=== PATIENT | female | born 1960 | race Caucasian/White ===

== ENCOUNTER 2019-12-15 10:01 | Outpatient (CLI) | payer MEDICARE, SELFPAY ==
--- NOTE | 2019-12-15 10:15 | CT_ITS ---
WS: [id number] LDCT LUNG CANCER SCREENING TECHNIQUE: Noncontrast CT of the chest with coronal and sagittal reformatted images. CLINICAL INFORMATION: NICOTINE DEPENDENCE,CIGARETTES COMPARISON: None. DLP: 54.58 mGy.cm DIvol: 1.[address] scans at [facility] use at least one of these dose optimization techniques: automat ed exposure control; mA and/or kV adjustment per patient size (includes targeted exams where dose is matched to clinical indication); or iterative reconstruction. FINDINGS: No suspicious pulmonary parenchymal opacities. No mediastinal or hilar lymphadenopathy. Coronary calc ification. Adrenal glands are normal. No axillary lymphadenopathy. Postoperative changes bilateral to oli shoulder arthroplasties. CT/CT lung screening [id number] IMPRESSION: LUNG-RADS: 1-Negative FOLLOW UP: 12 Month: Continue annual screening with LDCT
== END 2019-12-15 10:02 | disposition home or self-care (01) ==
LOC: CT 10:05
PROVIDERS: PCP Family Medicine; Visit Provider Family Medicine
DX: Z12.2 Encounter for screening for malignant neoplasm of respiratory organs (principal); F17.210 Nicotine dependence, cigarettes, uncomplicated
CPT/HCPCS: G0297

== ENCOUNTER 2020-01-31 13:24 | Outpatient (CLI) | payer MEDICARE, SELFPAY ==
--- NOTE | 2020-01-31 13:29 | MM_ITS ---
WS: [id number] SCREENING DIGITAL MAMMOGRAM WITH CAD HISTORY: SCREENING COMPARISON: 11/24/2017 and 11/15/2016 Bilateral CC and MLO views submitted. Computer aided detection analyzed. Breast composition: There are scattered areas of fibroglandular density. No suspicious masses, microc alcifications or architectural distortion. MM/[place] [id number] IMPRESSION: BI-RADS: 1-Negative FOLLOW UP: 1 Year Follow-up
--- NOTE | 2020-01-31 15:09 | XR_ITS ---
WS: [id number] SCREENING DEXA SCAN [employer] CLINICAL INFORMATION: OSTEOPOROSIS COMPARISON: September 20, 2014 FINDINGS: The L1-L4 bone mineral density measures 0.879 g/cm2. This corresponds to a T score score of -2.5 and Z score of -1.1. Left forearm bone mineral density 0.59 g/sq cm with a T score of -3.2 and Z score of -2.2 XR/XR DEXA axial skeleton* [id number] IMPRESSION: Osteoporosis
== END 2020-01-31 13:25 | disposition home or self-care (01) ==
LOC: RADSHAW 13:26
PROVIDERS: PCP Family Medicine; Visit Provider Family Medicine
DX: Z12.31 Encounter for screening mammogram for malignant neoplasm of breast (principal); M81.0 Age-related osteoporosis without current pathological fracture
CPT/HCPCS: 77067; 77080

== ENCOUNTER → 2020-03-13 11:31 | Outpatient (BNVA) | payer MEDICARE, SELFPAY | PROVIDERS: PCP Family Medicine; Visit Provider Internal Medicine | DX: Z20.822 Contact with and (suspected) exposure to COVID-19 (principal); Z01.812 Encounter for preprocedural laboratory examination | CPT/HCPCS: 87635 ==

== ENCOUNTER 2020-03-20 08:00 | Day surgery (SDC) | payer MEDICARE, SELFPAY ==
[2020-03-16 14:16] VITALS: BMI 24.3
--- NOTE | 2020-03-20 08:27 | W.PM.OPSUD ---
Surgery/Procedure H&P Update DATE OF PROCEDURE: March 20, 2020 DATE H&P PERFORMED: 03/09/20 PREOP DIAGNOSIS: dbl PLANNED PROCEDURE: Operation Date: 03/20/20 09:30 Proposed Procedures p EGD [id number] K52.9(Not Applicable) - Mickey Malcolm MD s Colonoscopy(Not Applicable) - Mickey Malcolm MD
--- NOTE | 2020-03-20 08:27 | W.PM.OPSUD ---
Surgery/Procedure H&P Update DATE OF PROCEDURE: March 20, 2020 DATE H&P PERFORMED: 03/09/20 PREOP DIAGNOSIS: dbl PLANNED PROCEDURE: Operation Date: 03/20/20 09:30 Proposed Procedures p EGD [id number] K52.9(Not Applicable) - Mickey Malcolm MD s Colonoscopy(Not Applicable) - Mickey Malcolm MD
[2020-03-20 08:36] VITALS: BP 130/92; PULSE 96; RESP 16; TEMP 36.4; O2SAT 96
[2020-03-20] MEDS: sodium chloride 0.9% 1,000 ML 30 ML IV (09:12)
--- NOTE | 2020-03-20 09:38 | P.ANESASSM_ITS ---
Pre-Anesthetic Assessment Pre-Anesthetic Assessment: Height/Weight: Height 1.6 m Weight 62.142 kg Temp Pulse Resp BP Pulse Ox 97.6 F 96 16 130/92 96 03/20/20 08:36 03/20/20 08:36 03/20/20 08:36 03/20/20 08:36 03/20/20 08:36 Preop Diagnosis: dbl Proposed Procedure: Operation Date: 03/20/20 09:30 Proposed Procedures p EGD [id number] 20271 K52.9(Not Applicable) - Mickey Malcolm MD s Colonoscopy(Not Applicable) - Mickey Malcolm MD Was Beta Tone taken within 24 hours: N/A Last intake: Intake Last Liquid Date 03/19/20 Last Liquid Time 21:00 Last Solid Date 03/18/20 Last Solid Time 21:00 Social: Social History: Tobacco and No alcohol Exam: Pre-Anes Outpt Exam: alert, oriented x 3 and regular rate & rhythm Airway: Submandibular: WNL Cervical ROM: WNL MP: 2 Dentition: Full Pulmonary: Pulmonary: COPD CV/HEM: CV/HEM: HTN GI: GI: GERD Anesthetic Plan: ASA status: 3 Anesthesia: MAC Risk of > 500 ml blood loss (7ml/kg in children): No Meds/Allergies Current Medications: Current Medications Generic Name Dose Route Start Last Admin Trade Name Freq PRN Reason Stop Dose Admin Sodium Chloride 1,000 mls @ 30 ml s/hr 03/20/20 08:30 03/20/20 09:12 Sodium Chloride 0.9% IV 03/21/20 08:29 30 mls/hr .Q24H CITLALI Administration PFSH Anesthesia PFSH: Social History (Updated 03/09/20 @ 11:19 by VINAY Rivers) Smoking and tobacco status: current every day smoker Alcohol intake: current Alcohol intake frequency: 3 or more drinks per day Alcohol type: beer Adopted: Yes Marital status: Number of children: 0 service: No History of recent travel: No Data Anesthesia Cardiac Studies: 2 No Data to Display
[2020-03-20 10:20] VITALS: BP 117/66; PULSE 90; RESP 16; TEMP 36.4; O2SAT 96
[2020-03-20 10:35] VITALS: BP 127/84; PULSE 86; RESP 18; TEMP 36.4; O2SAT 97
--- NOTE | 2020-03-20 11:36 | ANE.PACU2 ---
Inpatient post-anesthesia follow up: Airway intact: Yes Vital signs: Temperature 97.6 F Pulse Rate 86 Respiratory Rate 18 Blood Pressure 127/84 Pulse Oximetry 97 Oxygen Delivery Me thod Room Air Oxygen Flow Rate 3 Fraction of Inspir ed Oxygen Hydration adequate: Yes Nausea and vomiting: No Pain level: 1 Mental status: Baseline
[2020-03-21 08:04] LABS: H. Pylori / CLO Test Negative
== END 2020-03-20 11:29 | disposition home or self-care (01) ==
PROVIDERS: PCP Family Medicine; Visit Provider Internal Medicine
PROC: 0DJ08ZZ Inspection of Upper Intestinal Tract, Via Natural or Artificial Opening Endoscopic (ICD-10-PCS; CPT 43235; principal; 2020-03-20 09:30)
PROC: 0DJD8ZZ Inspection of Lower Intestinal Tract, Via Natural or Artificial Opening Endoscopic (ICD-10-PCS; CPT 45378; 2020-03-20 09:30)
DX: K52.9 Noninfective gastroenteritis and colitis, unspecified (principal); F17.210 Nicotine dependence, cigarettes, uncomplicated; K29.71 Gastritis, unspecified, with bleeding; K57.30 Diverticulosis of large intestine without perforation or abscess without bleeding; D12.3 Benign neoplasm of transverse colon; J44.9 Chronic obstructive pulmonary disease, unspecified; I10 Essential (primary) hypertension; K21.9 Gastro-esophageal reflux disease without esophagitis
CPT/HCPCS: 12345; 43239; 45385; 82274; 83630; 87077; 87493; 87506; 88305; J2354; J2704; J7030

== ENCOUNTER → 2020-08-04 10:33 | Outpatient (BNVA) | payer MEDICARE, SELFPAY | PROVIDERS: PCP Family Medicine; Visit Provider Family Medicine | DX: M62.830 Muscle spasm of back (principal); M94.0 Chondrocostal junction syndrome [Tietze]; M54.9 Dorsalgia, unspecified; Z79.899 Other long term (current) drug therapy | CPT/HCPCS: 81000 ==

== ENCOUNTER → 2020-11-06 10:57 | Outpatient (BNVA) | payer MEDICARE, SELFPAY | PROVIDERS: PCP Family Medicine; Visit Provider Nurse Practitioner Family | DX: M25.551 Pain in right hip (principal); Z96.641 Presence of right artificial hip joint | CPT/HCPCS: 73502 ==

== ENCOUNTER 2020-12-11 06:56 | Outpatient (CLI) | payer MEDICARE, SELFPAY ==
--- NOTE | 2020-12-11 07:10 | MR_ITS ---
WS: [id number] MRI/MRCP OF THE ABDOMEN WITHOUT GADOLINIUM ENHANCEMENT TECHNIQUE: Thin and thick slab MRCP, Axial T2, Coronal MRCP, Axial Dual Echo, and Axial 2-D Fiesta imaging was obtained. Coronal 2-D Fiesta imaging. CLINICAL INFORMATION: Post prandial abdominal pain in the absence of a GB COMPARISON: Ultrasound 4 26,011 FINDINGS: A few incidental hepatic cysts the largest measuring 10 mm. Cholecystectomy. No intrahepatic biliary ductal dilatation. Mild diffuse fatty infiltration liver. Pa ncreas is normal in appearance. Normal pancreatic duct. Normal pancreatic head. Common bile duct balbina ures 7.3 mm at pancreatic head within normal limits postcholecystectomy. Adrenal glands are normal. T iny bilateral renal cysts. No hydronephrosis in either kidney. Normal caliber abdominal aorta. Normal spleen. Impression: 1. Prior cholecystectomy. 2. No intrahepatic biliary ductal dilatation. Mild prominence of the common bile duct within normal limits postcholecystectomy. No evidence of choledocholithiasis. 3. Normal pancreas. Normal pancreatic duct. 4. Incidental hepatic cysts. 5. Mild diffuse fatty infiltration liver. 6. No other significant findings.
== END 2020-12-11 06:57 | disposition home or self-care (01) ==
LOC: RADSHAW 06:58
PROVIDERS: PCP Family Medicine; Visit Provider Internal Medicine
DX: R10.9 Unspecified abdominal pain (principal); K76.0 Fatty (change of) liver, not elsewhere classified; K76.89 Other specified diseases of liver; Z90.49 Acquired absence of other specified parts of digestive tract
CPT/HCPCS: 74181

== ENCOUNTER 2021-02-12 09:31 | Emergency (ER) | payer MEDICARE, SELFPAY ==
[2021-02-12 10:06] VITALS: BP 147/81; PULSE 95; RESP 16; TEMP 37.1; O2SAT 98; BMI 25.4
--- NOTE | 2021-02-12 11:32 | W.ED.GENADLT ---
HPI - General Adult General: Chief complaint: Abdominal Pain Stated complaint: LOWER ABD PAIN Time Seen by Provider: 02/12/21 10:14 History of Present Illness: HPI narrative: Patient is a 60-year-old female with a history of prior hysterectomy, cystectomy presenting to the emergency room with complaints of lower abdominal pain since . Patient describes the pain is intermittent colicky pain in the lower abdomen. Patient reports pain is not worse with p.o. intake is not exacerbated by any activity. Patient denies any new vaginal discharge, new urinary symptoms, history of kidney stones, vomiting fever or chills. Patient has no melena or hematochezia. Denies any prior history of hernia. Onset: 5 days ago Duration:5 days Location:home Severity:moderate Review of Systems Narrative: Constitutional: No fever, no chills. HEENT: No vision changes CV: No chest pain, no palpitations PULM: no cough, no dyspnea. GI: +lower abdominal pain, no N/V/D. : No dysuria MSKEL: No muscle pain SKIN: No new rashes, no lesions. NEURO: No headache, no focal weakness. HEME: No visible bruises PSYCH: Normal mood PFSH ED PFSH: Medical History COPD (chronic obstructive pulmonary disease) Diabetes FH: bilateral hip replacements Onychomycosis Osteoporosis Spinal stenosis Surgical History H/O abdominal hysterectomy History of cholecystectomy History of left knee replacement History of replacement of both shoulder joints Social History Smoking and tobacco status: former smoker Alcohol intake: current Alcohol intake frequency: 3 or more drinks per day Alcohol type: beer Adopted: Yes Marital status: Number of children: 0 service: No History of recent travel: No Female Reproductive History: Spontaneous abortions: No Physical Exam Narrative: EXAM NARRATIVE: Head: Atraumatic Eyes: PERRL, conjunctiva without injection ENT: Mucous membrane moist NECK: Supple, ROM intact LUNGS: LCTAB, no crackles/rhonchi CV: RRR ABDOMEN: Soft, +mild focal TTP in the left and right lower quadarnats. NO guarding rebound, guarding, rigidity. No CVA tenderness to percussion. Neg Ya/Neg McBurney's point tenderness, no suprabupic tenderness to palpation. EXTREMITY: Normal ROM SKIN: No rash or erythema NEURO: Awake and alert, no focal motor deficits PSYCH: Normal mood and affect Course Vital Signs: Vital signs: Vital Signs Temperature 99.4 F 02/12/21 12:25 Pulse Rate 82 02/12/21 13:52 Respiratory Rate 18 02/12/21 13:52 Blood Pressure 159/88 02/12/21 13:52 Pulse Oximetry 92 02/12/21 13:52 MDM - General Adult MDM Narrative: Medical decision making narrative: 60-year-old female with history of prior cholecystectomy, hysterectomy presenting to the emergency room with complaints of lower abdominal pain x4 days. However, patient has mild tenderness to palpation lower abdomen. No guarding or rebound tenderness. Hemodynamically stable, in no acute distress. CT scan showed possible early diverticulitis versus diverticulosis. Finally, I discussed this with patient and instructed patient follow with primary care provider next 2 days to be reassessed for abd pain. In addition, have given patient prescription for antibiotics should she have fever, worsening pain, nausea/vomiting, or any new concerning complaints. No suspicion for other acute intra-abdominal pathology including SBO, biliary pathology, appendicitis, or other emergent condition requiring surgery. Rx tylenol PRN abd pain, maalox/pepcid PRN dyspepsia, and zofran PRN nausea/vomiting, augmentin BID x 10 days for diverticulitis just in case Disposition: Discharge. Patient counseled regarding diagnostic impression, treatment plan. Patient given ED strict return precautions to return for continuation, worsening, or development of new symptoms. Instructed to f/u w/ PCP regarding symptoms today. Patient verbalized understanding. Lab Data: Labs: Lab Results 02/12/21 02/12/21 02/12/21 12:01 12:01 12:05 WBC 7.3 10^3/uL 10^3/ uL (4.0-10.0) RBC 4.57 10^6/uL 10^6 /uL (4.1-5.3) Hgb 14.9 g/dL g/dL (11.5-15.3) Hct 44.9 % % (37.0-47.0) MCV 98.2 fl fl (81-99) MCH 32.6 pg pg (28.0-34.0) MCHC 33.2 g/dL g/dL (30.0-36.0) RDW 12.3 % % (12.1-15.1) Plt Count 253 10^3/cmm 10^3 /cmm (130-400) MPV 10.9 fL H fL (7.4-10.4) Neut % (Auto) 64.1 % % Lymph % (Auto) 26.6 % % [place] % (Auto) 7.9 % % Eos % (Auto) 0.7 % % Baso % (Auto) 0.4 % % Neut # (Auto) 4.66 10^3/uL 10^3 /uL (1.8-7.7) Lymph # (Auto) 1.9 10^3/uL 10^3/ uL (0.8-4.8) [place] # (Auto) 0.6 10^3/uL 10^3/ uL (0.2-0.9) Eos # (Auto) 0.1 10^3/uL 10^3/ uL (0.0-0.8) Baso # (Auto) 0.0 10^3/uL 10^3/ uL (0.0-0.1) Nucleated RBC % (a uto) 0 % % Nucleated RBCs # 0.0 /100WBC /100W BC Sodium 137 mmol/L mmol/L (136-145) Potassium 3.8 mmol/L mmol/L (3.5-5.1) Chloride 96 mmol/L L mmol/ L (98-107) Carbon Dioxide 27 mmol/L mmol/L (22-29) Anion Gap 17.8 (5-19) BUN 11 mg/dL mg/dL (8-23) Creatinine 0.6 mg/dL mg/dL (0.5-0.9) GFR Calculation 101.3 mL/min mL/m in (90-130) Glucose 116 mg/dL H mg/dL (65-115) Calculated Osmolal ity 284 mOsm/kg L mOs m/kg (285-295) Calcium 9.4 mg/dL mg/dL (8.5-10.5) Total Bilirubin 0.3 mg/dL mg/dL (0.15-1.2) AST 18 U/L U/L (0-32) ALT 23 U/L U/L (0-33) Alkaline Phosphata se 94 IU/L IU/L (35-105) Total Protein 8.0 g/dL g/dL (6.6-8.7) Albumin 4.6 g/dL g/dL (3.5-5.2) Globulin 3.4 g/dL g/dL (1.3-4.6) Lipase 28 U/L U/L (13-60) Urine Color Straw (Yellow) Urine Appearance Clear (CLEAR) Urine pH 7 (5-7) Ur Specific Gravit y 1.005 (1.005-1.030) Urine Protein Neg (Negative) Urine Glucose (UA) Norm (Normal) Urine Ketones Negative (Negative) Urine Blood Neg (Negative) Urine Nitrate Negative (Negative) Urine Bilirubin Neg (Negative) Urine Urobilinogen Norm mg/dL mg/dL (Negative) Ur Leukocyte Zara ase Negative (Negative) Imaging Data^: Other Imaging: Radiologist's impression: [address] [id number] Scan ReportSigned Patient: Juan Fair #: [id number]: [id number]#:[id number]/Sex: 60 / FADM Date: 02/12/21Loc: ERRoom/Bed:Attending Dr: Ordering Provider/Ordering MD: Akash Whyte MD Date of Service: 02/12/21 Procedure(s): CT abdomen pelvis w con* [id number] Accession Number(s): [id number] Report Number: [id number] WS: [id number] CT ABDOMEN AND PELVIS WITH CONTRAST HISTORY: Lower abdominal pain for 4 days. Diarrhea. TECHNIQUE: Imaging performed of the abdomen and pelvis with IV contrast. Single phase imaging of the abdomen. Coronal and sagittal reformats are submitted. [facility] use at least one of these dose optimization techniques: automated exposure control; mA and/or kV adjustment per patient size (includes targeted exams where dose is matched to clinical indication); or iterative reconstruction. IV CONTRAST: Omnipaque 300; 95 mL IV. Oral contrast: No DLP: 1069.24 mGy.cm COMPARISON: 07/16/2006 Lower thorax: Lung bases are hyperinflated. Normal size heart. No effusion. No hiatal hernia. Liver/biliary system: Liver is top normal size. Cysts within the lateral segment LEFT lobe of the liver was present in 2007. Lobulated low-attenuation nodule in the RIGHT lobe of the liver is unchanged. No solid mass or abnormal enhancement. Normal portal vein. Gallbladder: Status post cholecystectomy. Pancreas: Normal size pancreas and pancreatic duct. No adjacent inflammation. Spleen: Normal size spleen. No mass or infarct. Adrenal glands: Normal. Right kidney: Normal size kidney. 5 mm hypodensity inferior pole. No obstruction. Left kidney: Normal. Aorta: Mild atherosclerosis with no aneurysm. Lymphadenopathy: None. Free fluid: None. GI tract: Prior appendectomy. No GI tract obstruction. There is mild diffuse thickening of the stomach mucosa which could be due to underdistention. No adjacent inflammation. No GI tract obstruction. There are numerous diverticula throughout the sigmoid colon with mild narrowing of the lumen. No definite areas of acute diverticulitis. There is some very mild adjacent stranding and thickening which could be early changes of developing diverticulitis. Abdominal wall: Unremarkable abdominal wall. No hernia. Pelvis: Urinary bladder and soft tissues of the pelvis are being significantly obscured by artifact from bilateral hip prostheses. Bones: Degenerative disc disease is moderate at L5-S1. Bilateral hip prostheses. CT/CT abdomen pelvis w con* [id number] IMPRESSION: 1. Moderate diverticulosis within the sigmoid colon. There is mild wall thickening and narrowing of the lumen but no definite evidence for acute diverticulitis at this time. Consider early changes of diverticulitis. Radiographically cannot confirm acute inflammation. 2. No free air or free fluid. 3. Prior appendectomy and cholecystectomy and hysterectomy. 4. Hepatic cysts. Dictated By:Giselle Stewart DOSigned By:Giselle Stewart DOSigned Date/Time:02/12/21 1432DD/ 1419 Discharge Plan Discharge Patient Disposition: Home Clinical Impression: Abdominal pain, Diverticulosis Condition: Stable Prescriptions: New Zofran 4 mg tablet 4 mg PO TID PRN (Reason: nausea and vomiting) 4 Days Qty: 12 RF: 0 acetaminophen 500 mg tablet 500 mg PO Q6H PRN (Reason: pain) 5 Days Qty: 20 RF: 0 Maalox Advanced 1,000-60 mg tablet,chewable 1 tab PO TID PRN (Reason: abdominal pain) 7 Days Qty: 21 RF: 0 Augmentin 875-125 mg tablet 1 tab PO Q12H 10 Days Qty: 20 RF: 0 No Action cyclobenzaprine 5 mg tablet 10 mg PO TID MDD 6 tabs PRN (Reason: muscle spasm) Qty: 30 RF: 1 Creon 24,000-76,000 -120,000 unit capsule,delayed release(DR/EC) 1 cap PO TID Qty: 90 RF: 3 valsartan-hydrochlorothiazide 160-12.5 mg tablet 1 tab PO DAILY RF: 0 budesonide-formoterol [Symbicort] 160-4.5 mcg/actuation HFA aerosol inhaler 2 puff inhalation BID RF: 0 albuterol sulfate 90 mcg/actuation HFA aerosol inhaler 2 puff inhalation QID RF: 0 Dexilant 60 mg capsule,biphase delayed releas 60 mg PO DAILY Qty: 90 RF: 3 Discharge Orders: Discharge ED (Routine); Ordered 02/12/21 Ordered By: Akash Whyte Referrals: Monse Hartman MD [Primary Care Provider] - Patient Instructions: Diverticulitis (ED), Diverticulosis (ED), Abdominal Pain (ED) Activity Restrictions/Additional Instructions: Please come back if you have any worsening abdominal pain, fever or chills, nausea or vomiting, diarrhea, blood in the stool, inability hold down liquid or solids, or any new concerning complaints. Our clinical case manager will have you follow-up with a primary care doctor in the next few days for reassessment of abdominal pain. You would be expected to have a phone call with our clinical case manager who will put you on the schedule. Here's your Ct report: [facility] CenterLbbzoenzgw12[address] [place], [place] [address]QB Scan ReportSigned Patient: Juan Fair #: [id number]: [id number]#:[id number]/Sex: 60 / FADM Date: 02/12/21Loc: ERRoom/Bed:Attending Dr: Ordering Provider/Ordering MD: Akash Whyte MD Date of Service: 02/12/21 Procedure(s): CT abdomen pelvis w con* [id number] Accession Number(s): [id number] Report Number: [id number] WS: [id number] CT ABDOMEN AND PELVIS WITH CONTRAST HISTORY: Lower abdominal pain for 4 days. Diarrhea. TECHNIQUE: Imaging performed of the abdomen and pelvis with IV contrast. Single phase imaging of the abdomen. Coronal and sagittal reformats are submitted. All CT scans at [facility] use at least one of these dose optimization techniques: automated exposure control; mA and/or kV adjustment per patient size (includes targeted exams where dose is matched to clinical indication); or iterative reconstruction. IV CONTRAST: Omnipaque 300; 95 mL IV. Oral contrast: No DLP: 1069.24 mGy.cm COMPARISON: 07/16/2006 Lower thorax: Lung bases are hyperinflated. Normal size heart. No effusion. No hiatal hernia. Liver/biliary system: Liver is top normal size. Cysts within the lateral segment LEFT lobe of the liver was present in 2006. Lobulated low-attenuation nodule in the RIGHT lobe of the liver is unchanged. No solid mass or abnormal enhancement. Normal portal vein. Gallbladder: Status post cholecystectomy. Pancreas: Normal size pancreas and pancreatic duct. No adjacent inflammation. Spleen: Normal size spleen. No mass or infarct. Adrenal glands: Normal. Right kidney: Normal size kidney. 5 mm hypodensity inferior pole. No obstruction. Left kidney: Normal. Aorta: Mild atherosclerosis with no aneurysm. Lymphadenopathy: None. Free fluid: None. GI tract: Prior appendectomy. No GI tract obstruction. There is mild diffuse thickening of the stomach mucosa which could be due to underdistention. No adjacent inflammation. No GI tract obstruction. There are numerous diverticula throughout the sigmoid colon with mild narrowing of the lumen. No definite areas of acute diverticulitis. There is some very mild adjacent stranding and thickening which could be early changes of developing diverticulitis. Abdominal wall: Unremarkable abdominal wall. No hernia. Pelvis: Urinary bladder and soft tissues of the pelvis are being significantly obscured by artifact from bilateral hip prostheses. Bones: Degenerative disc disease is moderate at L5-S1. Bilateral hip prostheses. CT/CT abdomen pelvis w con* [id number] IMPRESSION: 1. Moderate diverticulosis within the sigmoid colon. There is mild wall thickening and narrowing of the lumen but no definite evidence for acute diverticulitis at this time. Consider early changes of diverticulitis. Radiographically cannot confirm acute inflammation. 2. No free air or free fluid. 3. Prior appendectomy and cholecystectomy and hysterectomy. 4. Hepatic cysts. Dictated By:Giselle Stewart DOSigned By:Giselle Stewart DOSigned Date/Time:02/12/21 1432DD/ 1419 Coding Level of Care Code ED News Director for Prieto Rojas
[2021-02-12 12:08] LABS: Basophils % 0.4 %; Eosinophils # 0.1 10^3/uL (0.0-0.8); Eosinophils % 0.7 %; Hematocrit 44.9 % (37.0-47.0); Hemoglobin 14.9 g/dL (11.5-15.3); Lymphocytes # 1.9 10^3/uL (0.8-4.8); Lymphocytes % 26.6 %; Mean Corpuscular HGB Conc 33.2 g/dL (30.0-36.0); Mean Corpuscular Hemoglobin 32.6 pg (28.0-34.0); Mean Corpuscular Volume 98.2 fl (81-99); Mean Platelet Volume 10.9 fL (7.4-10.4); Monocytes # 0.6 10^3/uL (0.2-0.9); Monocytes % 7.9 %; Neutrophils # 4.66 10^3/uL (1.8-7.7); Neutrophils % 64.1 %; Nucleated Red Blood Cells % 0 %; Platelet Count 253 10^3/cmm (130-400); Red Blood Count 4.57 10^6/uL (4.1-5.3); Red Cell Distribution Width 12.3 % (12.1-15.1); White Blood Count 7.3 10^3/uL (4.0-10.0)
[2021-02-12 12:25] VITALS: BP 164/83; PULSE 89; RESP 17; TEMP 37.4; O2SAT 98
[2021-02-12 12:27] LABS: Alanine Aminotransferase 23 U/L (0-33); Albumin Level 4.6 g/dL (3.5-5.2); Alkaline Phosphatase 94 IU/L (35-105); Anion Gap 17.8 (5-19); Aspartate Amino Transferase 18 U/L (0-32); Blood Urea Nitrogen 11 mg/dL (8-23); Calcium 9.4 mg/dL (8.5-10.5); Carbon Dioxide 27 mmol/L (22-29); Chloride 96 mmol/L (98-107); Globulin 3.4 g/dL (1.3-4.6); Glomerular Filtration Rate 101.3 mL/min (90-130); Glucose 116 mg/dL (65-115); Lipase 28 U/L (13-60); Osmolality Calculated 284 mOsm/kg (285-295); Potassium 3.8 mmol/L (3.5-5.1); Sodium 137 mmol/L (136-145); Total Bilirubin 0.3 mg/dL (0.15-1.2)
[2021-02-12 12:38] LABS: Add Urine Microscopic? NO; Charge for UA Resulting for Rev
[2021-02-12] MEDS: sodium chloride 0.9% 1,000 ML 999 ML IV (12:50)
[2021-02-12 12:51] VITALS: RESP 18; O2SAT 95
[2021-02-12] MEDS: morphine 4 mg/mL SDV 1 mL 2 MG IVP (12:51)
[2021-02-12] MEDS: ondansetron 2 mg/ML SDV 2 mL 4 MG IVP (12:51)
[2021-02-12 12:53] LABS: Bilirubin Urine Neg (Negative); Blood Urine Neg (Negative); Glucose Urine UA Norm (Normal); Ketones Urine Negative (Negative); Leukocyte Esterase Urine Negative (Negative); Nitrate Urine Negative (Negative); Protein Urine Neg (Negative); Specific Gravity, Urine 1.005 (1.005-1.030); Urine Appearance Clear (CLEAR); Urine Color Straw (Yellow); Urobilinogen Urine Norm (Negative); pH Urine 7 (5-7)
--- NOTE | 2021-02-12 12:57 | CT_ITS ---
WS: [id number] CT ABDOMEN AND PELVIS WITH CONTRAST HISTORY: Lower abdominal pain for 4 days. Diarrhea. TECHNIQUE: Imaging performed of the abdomen and pelvis with IV contrast. Single phase imaging of the abdomen. Coronal and sagittal reformats are submitted. All CT scans at [facility] use at [address] one of these dose optimization techniques: automated exposure control; mA and/or kV adjustment per patient size (includes targeted exams where dose is matched to clinical indication); or iterative re construction. IV CONTRAST: Omnipaque 300; 95 mL IV. Oral contrast: No DLP: 1069.24 mGy.cm COMPARISON: 07/16/2006 Lower thorax: Lung bases are hyperinflated. Normal size heart. No effusion. No hiatal hernia. Liver/biliary system: Liver is top normal size. Cysts within the lateral segment LEFT lobe of the radha er was present in 2006. Lobulated low-attenuation nodule in the RIGHT lobe of the liver is unchanged. No solid mass or abnormal enhancement. Normal portal vein. Gallbladder: Status post cholecystectomy. Pancreas: Normal size pancreas and pancreatic duct. No adjacent inflammation. Spleen: Normal size spleen. No mass or infarct. Adrenal glands: Normal. Right kidney: Normal size kidney. 5 mm hypodensity inferior pole. No obstruction. Left kidney: Normal. Aorta: Mild atherosclerosis with no aneurysm. Lymphadenopathy: None. Free fluid: None. GI tract: Prior appendectomy. No GI tract obstruction. There is mild diffuse thickening of the stomac h mucosa which could be due to underdistention. No adjacent inflammation. No GI tract obstruction. Th ere are numerous diverticula throughout the sigmoid colon with mild narrowing of the lumen. No defini te areas of acute diverticulitis. There is some very mild adjacent stranding and thickening which cou ld be early changes of developing diverticulitis. Abdominal wall: Unremarkable abdominal wall. No hernia. Pelvis: Urinary bladder and soft tissues of the pelvis are being significantly obscured by artifact f rom bilateral hip prostheses. Bones: Degenerative disc disease is moderate at L5-S1. Bilateral hip prostheses. CT/CT abdomen pelvis w con* [id number] IMPRESSION: 1. Moderate diverticulosis within the sigmoid colon. There is mild wall thicke tabitha and narrowing of the lumen but no definite evidence for acute diverticulit is at this time. Consider early changes of diverticulitis. Radiographically can not confirm acute inflammation. 2. No free air or free fluid. 3. Prior appendectomy and cholecystectomy and hysterectomy. 4. Hepatic cysts.
[2021-02-12 13:52] VITALS: BP 159/88; PULSE 82; RESP 18; O2SAT 92
[2021-02-12] MEDS: iohexol 300 mg/mL 100 mL Btl IV (14:12)
--- NOTE | 2021-02-15 15:15 | DCPLANNER ---
manager interface had message to speak with patient about scheduling a follow up appointment with primary care. manager interface was unable to speak with patient at this time.
== END 2021-02-12 15:18 | disposition home or self-care (01) ==
PROVIDERS: Nurse Practitioner Family; Emergency Provider Emergency Medicine; PCP Family Medicine
DX: K57.90 Diverticulosis of intestine, part unspecified, without perforation or abscess without bleeding (principal); J44.9 Chronic obstructive pulmonary disease, unspecified; E11.9 Type 2 diabetes mellitus without complications; Z87.891 Personal history of nicotine dependence
CPT/HCPCS: 74177; 80053; 81003; 83690; 85025; 96361; 96374; 96375; 99284; 99291; J2270; J2405; J7030; Q9967

== ENCOUNTER 2021-02-28 08:20 | Outpatient (CLI) | payer MEDICARE, SELFPAY ==
--- NOTE | 2021-02-28 08:30 | MM_ITS ---
WS: [id number] BILATERAL DIGITAL SCREENING MAMMOGRAPHY WITH CAD CLINICAL INFORMATION: SCREENING HISTORY: Screening mammogram. History of breast cysts. COMPARISON: January 31, 2020 TECHNIQUE: Bilateral CC and MLO views. FINDINGS: Scattered fibroglandular densities bilaterally. No suspicious focal mass, asymmetry, calcifications, or architectural distortion. No evidence of malignancy. MM/[place] [id number] IMPRESSION: BI-RADS: 1-Negative FOLLOW UP: 1 Year Follow-up Recommend return to annual screening mammography.
== END 2021-02-28 08:21 | disposition home or self-care (01) ==
LOC: RADSHAW 08:25
PROVIDERS: PCP Family Medicine; Visit Provider Family Medicine
DX: Z12.31 Encounter for screening mammogram for malignant neoplasm of breast (principal)
CPT/HCPCS: 77067

== ENCOUNTER → 2021-03-20 09:12 | Outpatient (BNVA) | payer MEDICARE, SELFPAY | PROVIDERS: PCP Family Medicine; Visit Provider Internal Medicine | DX: M81.0 Age-related osteoporosis without current pathological fracture (principal); K52.9 Noninfective gastroenteritis and colitis, unspecified; Z87.310 Personal history of (healed) osteoporosis fracture | CPT/HCPCS: 99204 ==

== ENCOUNTER 2021-03-20 11:31 | Outpatient (CLI) | payer MEDICARE, SELFPAY ==
[2021-03-20 13:00] LABS: Erythrocyte Sedimentation Rate 23 mm/hr (0-15)
[2021-03-20 13:17] LABS: Cortisol Random 7.27 ug/dL (2.47-19.5); Parathyroid Hormone 85.4 pg/mL (15-65)
[2021-03-20 13:22] LABS: Calcium 10.8 mg/dL (8.5-10.5)
[2021-03-20 13:26] LABS: 25 Hydroxy Vitamin D 11 ng/mL (30-100); C Reactive Protein 19.8 mg/L (0.0-4.9); Magnesium 2.1 mg/dL (1.7-2.3); Phosphorus 3.2 mg/dL (2.5-4.5); Thyroid Stimulating Hormone 1.59 uIU/mL (0.27-4.20)
[2021-03-21 08:53] LABS: PROTEIN, TOTAL 7.3 g/dL (6.1-8.1)
[2021-03-21 13:37] LABS: Cyclic Citrullinated Peptide <16 UNITS
[2021-03-21 16:17] LABS: ALBUMIN 4.3 g/dL (3.8-4.8); ALPHA 1 GLOBULIN 0.4 g/dL (0.2-0.3); ALPHA 2 GLOBULIN 0.9 g/dL (0.5-0.9); BETA 1 GLOBULIN 0.5 g/dL (0.4-0.6); BETA 2 GLOBULIN 0.4 g/dL (0.2-0.5); GAMMA GLOBULIN 0.8 g/dL (0.8-1.7)
[2021-03-22 14:31] LABS: Immunoglobulin A 219 mg/dL (70-320)
[2021-03-23 02:22] LABS: Gliadin Ab.IgG <1.0 U/mL; Tissue Transglutaminase IgA Ab <1.0 U/mL; Tissue transglutaminase Ab.IgG <1.0 U/mL
== END 2021-03-20 11:32 | disposition home or self-care (01) ==
LOC: LAB 11:52
PROVIDERS: PCP Family Medicine; Visit Provider Internal Medicine
DX: B35.1 Tinea unguium (principal); E11.9 Type 2 diabetes mellitus without complications; K29.70 Gastritis, unspecified, without bleeding; K52.9 Noninfective gastroenteritis and colitis, unspecified; K83.4 Spasm of sphincter of Oddi; R14.0 Abdominal distension (gaseous); Z72.0 Tobacco use
CPT/HCPCS: 82306; 82310; 82533; 82784; 83516; 83735; 83970; 84100; 84155; 84165; 84443; 85651; 86140; 86200; 86431

== ENCOUNTER 2021-03-25 13:02 | Emergency (ER) | payer MEDICARE, SELFPAY ==
[2021-03-25 13:15] VITALS: BP 125/68; PULSE 98; RESP 16; TEMP 37.4; O2SAT 94; BMI 25.7
--- NOTE | 2021-03-25 13:34 | XRR_ITS ---
PROCEDURE INFORMATION: Exam: XR Right Femur Exam date and time: 03/25/2021 1:34 PM Age: 60 years old Clinical indication: Pain; Thigh; Right; Prior surgery TECHNIQUE: Imaging protocol: XR Right femur. Views: 2 views. COMPARISON: No relevant prior studies available. FINDINGS: Bones/joints: There is generalized osteopenia seen. A metallic arthroplasty is seen in the right hip. Metallic plate is seen in the lateral aspect of the right femoral shaft with multiple metallic wires around the femur. Soft tissues: Unremarkable. XR/XR femur RT min 2V* [id number] IMPRESSION: 1. Metallic arthroplasty right hip in good position. 2. Metallic plate lateral aspect of the femoral shaft with multiple metallic wires
--- NOTE | 2021-03-25 13:35 | ED_ITS ---
HPI - Extremity Problem General: Chief complaint: Extremity Injury, Lower Stated complaint: right thigh pain Time Seen by Provider: 03/25/21 13:23 Source: patient Mode of arrival: ambulatory Limitations: no limitations History of Present Illness: Patient is a 60-year-old female who presents to ED today with a complaint of right lateral thigh pain. Patient tells me yesterday evening when she went to bed she felt normal. She states she woke up in the middle of the night after lying on her right side and began noticing fairly significant pain to her right lateral thigh. Patient states she has a previous history of a total hip replacement as well as a femur reconstruction. She states she has osteoarthritis. Patient states she could barely walk when she tried to get out of bed this morning. She was seen at the [facility] and had outpatient XRs ordered but decided to come to the ED for further evaluation. She has not noticed any color or temperature changes to the extremity. She has not noticed any swelling. She is not having pain to the hip itself. No recent illnesses or fevers. MD Complaint: extremity pain Onset (ago): hour(s) Pain Consistency: constant Location: right and lower extremity Radiation: none Relieving factors: immobilization Exacerbating factors: range of motion, weight bearing, walking and palpation Associated symptoms: Reports no associated symptoms; Deny chest pain, fever(s) or rash Review of Systems Const: Denies: fever(s), chills, body aches, fatigue or malaise Card: Denies: chest pain Resp: Denies: dyspnea GI: Denies: abdominal pain : Denies: flank pain Musc: Reports: extremity pain (R thigh); Denies: neck pain, back pain, extremity swelling, joint pain, joint swelling, joint redness, joint warmth, joint stiffness, muscle weakness or decrease in muscle mass Skin/Breast: Denies: rash or changes in skin color Neuro: Reports: difficulty walking (secondary to R thigh pain); Denies: numbness in extremities, weakness in extremities or sensory changes [facility] ED PFSH: Medical History COPD (chronic obstructive pulmonary disease) Diabetes FH: bilateral hip replacements Onychomycosis Osteoporosis Spinal stenosis Surgical History H/O abdominal hysterectomy History of cholecystectomy History of left knee replacement History of replacement of both shoulder joints Social History Smoking and tobacco status: former smoker Alcohol intake: current Alcohol intake frequency: 3 or more drinks per day Alcohol type: beer Adopted: Yes Marital status: Number of children: 0 service: No History of recent travel: No Female Reproductive History: Spontaneous abortions: No Physical Exam Const: COMMON NORMALS: no acute distress, average body habitus, patient oriented x3, no limitations, alert and well nourished GENERAL APPEARANCE: cooperative Resp: COMMON NORMALS: normal respiratory effort and clear to auscultation bilaterally AUSCULTATION: clear to auscultation bilaterally Cardio: COMMON NORMALS: regular rate and regular rhythm RATE: regular rate RHYTHM: regular rhythm GI: COMMON NORMALS: Normal to inspection, nondistended, normoactive bowel sounds present, Soft to palpation, non-tender, No hepatosplenomegaly present and no masses PALPATION: Yes Soft to palpation and Yes No hepatosplenomegaly present : COMMON NORMALS: Yes no CVA tenderness BLADDER/KIDNEY EXAM: Yes no CVA tenderness Back/Pelvis: COMMON NORMALS: no CVA tenderness, thoracic and lumbar spine normal to inspection, no thoracic nor lumbar tenderness and thoraco-lumbar ROM normal Extremity: COMMON NORMALS: capillary refill normal, no joint enlargement, no clubbing, cyanosis or edema, no calf tenderness and no pedal edema GENERAL: Yes normal exam except as noted RIGHT LOWER EXTREMITY: Yes upper leg (see below) OTHER: pt has previous surgical incision running down lateral aspect of R thigh; she complains of pain to the anteriolateral portion of her upper thigh near her greater trochanter; there is no redness, swelling, warmth noted here; she does complain of pain in the hip joint itself; she is able to flex the knee w/o discomfort but states she is not able to raise her leg directly off table secondary to pain; patient has good DP/PT pulses and normal cap refill; sensory is intact; skin/thigh is not tight feeling Neuro: COMMON NORMALS: patient oriented x3, moves all extremities, no focal motor deficits and no sensory deficits noted SENSORIUM/ORIENTATION: Yes alert GAIT: Yes Unable to assess gait Skin: COMMON NORMALS: no rashes or lesions noted GENERAL SKIN EXAM: no rashes or lesions noted TRAUMA: no lacerations or abrasions Course Vital Signs: Vital signs: Vital Signs Temperature 99.3 F 03/25/21 13:15 Pulse Rate 97 03/25/21 14:32 Respiratory Rate 18 03/25/21 14:32 Blood Pressure 119/67 03/25/21 14:32 Pulse Oximetry 95 03/25/21 14:32 MDM - Extremity (Nontraumatic) Medical Decision Making XR neg. Vitals stable. Labs fairly unremarkable. Moderately elevated CRP at 42.7. At this time based on her history and physical exam I would have a low suspicion for aorto iliac artery occlusion, bone tumor, septic arthritis, osteonecrosis, DVT, abscess. Does not sound suspicious for nerve compression or lumbar radiculopathy/sciatica. Given history of laying on affected side all night and now having pain to lateral aspect near greater trochanter I think trochanteric bursitis is most likely. Will place on pain meds/steroids for this. States she is not supposed to be taking NSAIDS secondary to previous stomach issues . Recommend follow up with PCP in 3-5 days if pain persists. Strict return to ED precautions given. Lab Data : 03/25/21 14:00 03/25/21 14:00 Radiology Impressions Femur X-Ray 03/25/21 13:34 IMPRESSION: 1. Metallic arthroplasty right hip in good position. 2. Metallic plate lateral aspect of the femoral shaft with multiple metallic wires Laboratory Results WBC 8.2 10^3/uL (4.0-10.0) 03/25/21 14:00 RBC 4.31 10^6/uL (4.1-5.3) 03/25/21 14:00 Hgb 14.2 g/dL (11.5-15.3) 03/25/21 14:00 Hct 43.6 % (37.0-47.0) 03/25/21 14:00 MCV 101.2 fl (81-99) H 03/25/21 14:00 MCH 32.9 pg (28.0-34.0) 03/25/21 14:00 MCHC 32.6 g/dL (30.0-36.0) 03/25/21 14:00 RDW 12.2 % (12.1-15.1) 03/25/21 14:00 Plt Count 273 10^3/cmm (130-400) 03/25/21 14:00 MPV 11.1 fL (7.4-10.4) H 03/25/21 14:00 Neut % (Auto) 66.4 % 03/25/21 14:00 Lymph % (Auto) 24.9 % 03/25/21 14:00 [place] % (Auto) 7.9 % 03/25/21 14:00 Eos % (Auto) 0.2 % 03/25/21 14:00 Baso % (Auto) 0.4 % 03/25/21 14:00 Neut # (Auto) 5.43 10^3/uL (1.8-7.7) 03/25/21 14:00 Lymph # (Auto) 2.0 10^3/uL (0.8-4.8) 03/25/21 14:00 [place] # (Auto) 0.7 10^3/uL (0.2-0.9) 03/25/21 14:00 Eos # (Auto) 0.0 10^3/uL (0.0-0.8) 03/25/21 14:00 Baso # (Auto) 0.0 10^3/uL (0.0-0.1) 03/25/21 14:00 Nucleated RBC % (auto) 0 % 03/25/21 14:00 Nucleated RBCs # 0.0 /100WBC 03/25/21 14:00 Sodium 139 mmol/L (136-145) 03/25/21 14:00 Potassium 3.9 mmol/L (3.5-5.1) 03/25/21 14:00 Chloride 98 mmol/L (98-107) 03/25/21 14:00 Carbon Dioxide 28 mmol/L (22-29) 03/25/21 14:00 Anion Gap 16.9 (5-19) 03/25/21 14:00 BUN 11 mg/dL (8-23) 03/25/21 14:00 Creatinine 0.5 mg/dL (0.5-0.9) 03/25/21 14:00 GFR Calculation 125.0 mL/min (90-130) 03/25/21 14:00 Glucose 109 mg/dL (65-115) 03/25/21 14:00 Calculated Osmolality 288 mOsm/kg (285-295) 03/25/21 14:00 Calcium 9.6 mg/dL (8.5-10.5) 03/25/21 14:00 Total Bilirubin 0.2 mg/dL (0.15-1.2) 03/25/21 14:00 AST 15 U/L (0-32) 03/25/21 14:00 ALT 16 U/L (0-33) 03/25/21 14:00 Alkaline Phosphatase 95 IU/L (35-105) 03/25/21 14:00 Creatine Kinase 32 U/L (26-192) 03/25/21 14:00 C-Reactive Protein 42.7 mg/L (0.0-4.9) H 03/25/21 14:00 Total Protein 7.5 g/dL (6.6-8.7) 03/25/21 14:00 Albumin 4.6 g/dL (3.5-5.2) 03/25/21 14:00 Globulin 2.9 g/dL (1.3-4.6) 03/25/21 14:00 Discharge Plan Discharge Patient Disposition: Home Clinical Impression: Greater trochanteric bursitis of right hip Condition: Stable Prescriptions: New hydrocodone-acetaminophen 5-325 mg tablet 1 tab PO Q4H PRN (Reason: pain) Qty: 15 0RF methylprednisolone [Medrol (Diego)] 4 mg tablets,dose pack See Rx Instructions .ROUTE .COMPLEX Qty: 21 0RF Rx Instructions: orally per package directions No Action Creon 24,000-76,000 -120,000 unit capsule,delayed release(DR/EC) 1 cap PO TID Qty: 90 3RF Rx Instructions: administer with meals and/or snacks valsartan-hydrochlorothiazide 160-12.5 mg tablet 1 tab PO DAILY 0RF budesonide-formoterol [Symbicort] 160-4.5 mcg/actuation HFA aerosol inhaler 2 puff inhalation BID 0RF albuterol sulfate 90 mcg/actuation HFA aerosol inhaler 2 puff inhalation QID 0RF Dexilant 60 mg capsule,biphase delayed releas 60 mg PO DAILY Qty: 90 3RF colestipol 1 gram tablet 1 g PO BID 0RF Discharge Orders: Discharge ED (Routine); Ordered 03/25/21 Ordered By: Lennie Thomas Referrals: Monse Hartman MD [Primary Care Provider] - Patient Instructions: Opioid Safety Activity Restrictions/Additional Instructions: [facility] is committed to fighting the nationwide opiate epidemic. We are providing ALL patients with information regarding opiate safety. If you received opiate pain medication during your stay or if you received a prescription for opiate pain medication-please review this handout. If not, you may disregard. Thank you. As we discussed please follow-up with your primary care provider in 3 to 5 days if pain is persisting or worsening. You need to return to the emergency department for worsening or uncontrollable pain, any redness/warmth/heat to the affected area, severe pain with movement of your hip joint, any color or temperature changes to your lower leg, fevers greater than 100.4, generally feeling unwell, or any other concerns you may have. Hope you begin to feel better soon. Coding Level of Care Code ED Digital Forensic Analyst for Prieto Fwasim Exam Comprehensive
[2021-03-25 14:29] LABS: Basophils % 0.4 %; Eosinophils % 0.2 %; Hematocrit 43.6 % (37.0-47.0); Hemoglobin 14.2 g/dL (11.5-15.3); Lymphocytes % 24.9 %; Mean Corpuscular HGB Conc 32.6 g/dL (30.0-36.0); Mean Corpuscular Hemoglobin 32.9 pg (28.0-34.0); Mean Corpuscular Volume 101.2 fl (81-99); Mean Platelet Volume 11.1 fL (7.4-10.4); Monocytes # 0.7 10^3/uL (0.2-0.9); Monocytes % 7.9 %; Neutrophils # 5.43 10^3/uL (1.8-7.7); Neutrophils % 66.4 %; Nucleated Red Blood Cells % 0 %; Platelet Count 273 10^3/cmm (130-400); Red Blood Count 4.31 10^6/uL (4.1-5.3); Red Cell Distribution Width 12.2 % (12.1-15.1); White Blood Count 8.2 10^3/uL (4.0-10.0)
[2021-03-25 14:31] VITALS: RESP 16
[2021-03-25] MEDS: morphine 4 mg/mL SDV 1 mL IVP (14:31)
[2021-03-25] MEDS: ondansetron 2 mg/ML SDV 2 mL 4 MG IVP (14:31)
[2021-03-25 14:32] VITALS: BP 119/67; PULSE 97; RESP 18; O2SAT 95
[2021-03-25 14:46] LABS: Alanine Aminotransferase 16 U/L (0-33); Albumin Level 4.6 g/dL (3.5-5.2); Alkaline Phosphatase 95 IU/L (35-105); Anion Gap 16.9 (5-19); Aspartate Amino Transferase 15 U/L (0-32); Blood Urea Nitrogen 11 mg/dL (8-23); C Reactive Protein 42.7 mg/L (0.0-4.9); Calcium 9.6 mg/dL (8.5-10.5); Carbon Dioxide 28 mmol/L (22-29); Chloride 98 mmol/L (98-107); Creatine Phosphokinase 32 U/L (26-192); Globulin 2.9 g/dL (1.3-4.6); Glucose 109 mg/dL (65-115); Osmolality Calculated 288 mOsm/kg (285-295); Potassium 3.9 mmol/L (3.5-5.1); Sodium 139 mmol/L (136-145); Total Bilirubin 0.2 mg/dL (0.15-1.2); Total Protein 7.5 g/dL (6.6-8.7)
[2021-03-25 15:48] VITALS: BP 136/82; PULSE 86; RESP 20; O2SAT 92
== END 2021-03-25 15:50 | disposition home or self-care (01) ==
PROVIDERS: Emergency Provider Physician Assistant; PCP Family Medicine
DX: M70.61 Trochanteric bursitis, right hip (principal); J44.9 Chronic obstructive pulmonary disease, unspecified; E11.9 Type 2 diabetes mellitus without complications; Z96.643 Presence of artificial hip joint, bilateral; Z87.891 Personal history of nicotine dependence
CPT/HCPCS: 73552; 80053; 82550; 85025; 86140; 96374; 96375; 99283; J2270; J2405

== ENCOUNTER → 2021-04-13 09:15 | Outpatient (BNVA) | payer MEDICARE, SELFPAY | PROVIDERS: PCP Family Medicine; Visit Provider Internal Medicine | DX: M81.0 Age-related osteoporosis without current pathological fracture (principal); M54.50 Low back pain, unspecified; R79.89 Other specified abnormal findings of blood chemistry; Z11.59 Encounter for screening for other viral diseases; Z87.891 Personal history of nicotine dependence | CPT/HCPCS: 72100; 82550; 83516; 84100; 85651; 86140; 86160; 86162; 86200; 86235; 86255; 86376; 86431; 86704; 86803; 87340; 87522; 99214 ==

== ENCOUNTER 2021-04-13 10:16 | Outpatient (CLI) | payer MEDICARE, SELFPAY | END 2021-04-13 10:17 | disposition home or self-care (01) | LOC: RAD 10:27 | PROVIDERS: PCP Family Medicine; Visit Provider Internal Medicine | DX: M81.0 Age-related osteoporosis without current pathological fracture (principal); R79.89 Other specified abnormal findings of blood chemistry | CPT/HCPCS: 82550; 83516; 84100; 85651; 86140; 86160; 86162; 86200; 86235; 86255; 86376; 86431; 86704; 86803; 87340; 87522 ==

== ENCOUNTER → 2021-05-04 10:36 | Outpatient (BNVA) | payer MEDICARE, SELFPAY | PROVIDERS: PCP Family Medicine; Visit Provider Nurse Practitioner Family | DX: Z20.822 Contact with and (suspected) exposure to COVID-19 (principal) | CPT/HCPCS: 87635 ==

== ENCOUNTER → 2021-07-24 08:30 | Outpatient (BNVA) | payer MEDICARE, SELFPAY | PROVIDERS: PCP Family Medicine; Visit Provider Internal Medicine | DX: M81.0 Age-related osteoporosis without current pathological fracture (principal); M54.50 Low back pain, unspecified; R79.89 Other specified abnormal findings of blood chemistry | CPT/HCPCS: 36415; 80053; 82306; 82310; 83970; 99214 ==

== ENCOUNTER 2021-08-31 08:22 | Outpatient (CLI) | payer MEDICARE, SELFPAY ==
--- NOTE | 2021-08-31 08:45 | US_ITS ---
WS: [id number] ULTRASOUND THYROID TECHNIQUE: Ultrasound of the thyroid. CLINICAL INFORMATION: R79.89 - Other specified abnormal findings of blood chemi... COMPARISON: FINDINGS: Thyroid: Right and left thyroid lobes are normal in size and echotexture. This nodule underwent ultra sound directed fine-needle aspiration on 01/06/2018 showing benign follicular nodular hyperplasia Right thyroid lobe: 4.4 cm x 1.3 cm x 1.4 cm Tiny incidental colloid cyst. Thyroid. Left thyroid lobe: 3.3 cm x 1.7 cm x 1.1 cm. Tiny incidental colloid cyst LEFT thyroid. Isthmus: 0.3 mm. Hypoechoic isthmus nodule measuring 11 x 8 x 9 mm unchanged from previous examinations.This nodule un derwent ultrasound directed fine-needle aspiration on 01/06/2018 showing benign follicular nodular hy perplasia Cervical lymphadenopathy: None. US/US thyroid [id number] IMPRESSION: 1. No suspicious new thyroid findings today. 2. Hypoechoic isthmus nodule measuring 11 x 8 x 9 mm unchanged from previous e xaminations.This nodule underwent ultrasound directed fine-needle aspiration on 01/06/2018 showing benign follicular nodular hyperplasia
== END 2021-08-31 08:23 | disposition home or self-care (01) ==
LOC: RAD 08:24
PROVIDERS: PCP Family Medicine; Visit Provider Internal Medicine
DX: R79.89 Other specified abnormal findings of blood chemistry (principal); E04.1 Nontoxic single thyroid nodule
CPT/HCPCS: 76536

== ENCOUNTER → 2021-11-16 10:24 | Outpatient (BNVA) | payer MEDICARE, SELFPAY | PROVIDERS: PCP Family Medicine; Visit Provider Internal Medicine | DX: M81.0 Age-related osteoporosis without current pathological fracture (principal) | CPT/HCPCS: 99213 ==

== ENCOUNTER → 2021-11-21 09:36 | Outpatient (BNVA) | payer MEDICARE, SELFPAY | PROVIDERS: PCP Family Medicine; Visit Provider Internal Medicine Cardiovascular Disease | DX: R00.2 Palpitations (principal) | CPT/HCPCS: 93225 ==

== ENCOUNTER 2022-01-14 13:27 | Outpatient (CLI) | payer MEDICARE, SELFPAY ==
--- NOTE | 2022-01-14 15:00 | XR_ITS ---
WS: [id number] DEXA (DUAL ENERGY X-RAY ABSORPTIOMETRY) Bone mineral density was performed using a [employer] machine. HISTORY: M81.0 - Age-related osteoporosis without current pathology... COMPARISON: 01/31/2020 Lumbar spine BMD (L1-L4): 0.921 g/cm2 T score: -2.2 Z score: -0.9 Left forearm BMD: 0.529 g/cm2. T score: -4.0 Z score: -2.8 Compared to the prior study from 01/31/2020. Lumbar spine bone mineral density has increased by 4.8%. LEFT forearm bone mineral density has decreased by 11.1%. XR/XR DEXA axial skeleton* [id number] IMPRESSION: OSTEOPOROSIS based upon the WHO classification for females. Significant decrease in bone mineral density within the forearm since the prior study. Bone mineral density within the lumbar spine has significantly increase d.
== END 2022-01-14 13:28 | disposition home or self-care (01) ==
LOC: RAD 13:28
PROVIDERS: PCP Family Medicine; Visit Provider Internal Medicine
DX: M81.0 Age-related osteoporosis without current pathological fracture (principal)
CPT/HCPCS: 77080

== ENCOUNTER → 2022-01-21 10:16 | Outpatient (BNVA) | payer MEDICARE, SELFPAY | PROVIDERS: PCP Family Medicine; Visit Provider Emergency Medicine | DX: R68.89 Other general symptoms and signs (principal) | CPT/HCPCS: 87426 ==

== ENCOUNTER → 2022-01-24 10:48 | Outpatient (BNVA) | payer MEDICARE, SELFPAY | PROVIDERS: PCP Family Medicine; Visit Provider Internal Medicine Pulmonary Disease | DX: F17.210 Nicotine dependence, cigarettes, uncomplicated (principal); J44.9 Chronic obstructive pulmonary disease, unspecified; R06.09 Other forms of dyspnea | CPT/HCPCS: 99204 ==

== ENCOUNTER 2022-02-07 12:38 | Outpatient (CLI) | payer MEDICARE, SELFPAY | END 2022-02-07 12:39 | disposition home or self-care (01) | PROVIDERS: PCP Family Medicine; Visit Provider Internal Medicine Pulmonary Disease | DX: F17.210 Nicotine dependence, cigarettes, uncomplicated (principal); J43.1 Panlobular emphysema | CPT/HCPCS: 94060; 94618; 94726; 94729; J7613 ==

== ENCOUNTER 2022-03-01 09:04 | Outpatient (CLI) | payer MEDICARE, SELFPAY ==
--- NOTE | 2022-03-01 09:15 | CT_ITS ---
WS: [id number] LDCT LUNG CANCER SCREENING HISTORY: lung screening TECHNIQUE: Axial imaging performed from the apices to 1 cm below the costophrenic angles. Coronal and sagittal reformats are submitted with axial MIP series. All CT scans at [facility] use at least one of these dose optimization techniques: automated exposure control; mA and/or kV adjustment per patient size (includes targeted exams where dose is matched to clinical indication); or iterativ e reconstruction. DLP: 77.01 mGy.cm DIvol: Mean CTDIvol: 1.60 (mGy) COMPARISON: 12/15/2019 Diagnostic quality: Satisfactory Lung Nodules: Nonsolid nodule posterior RIGHT upper lobe measures 7 mm. Margins are very slightly irregular and spi culated with a central lucency. No additional mass or nodule. No endobronchial lesions. Lungs: Chronic emphysema. Heart: Normal size. No effusion. Few scattered coronary artery calcifications. Other findings: No adenopathy. Bilateral humeral head prostheses. Small hiatal hernia. Prior cholecys tectomy. CT/CT lung screening [id number] IMPRESSION: LUNG-RADS: 3-Probably Benign FOLLOW UP: 6 Month LDCT OTHER FINDINGS (S MODIFIER): None.
== END 2022-03-01 09:05 | disposition home or self-care (01) ==
LOC: RAD 09:07
PROVIDERS: PCP Family Medicine; Visit Provider Internal Medicine Pulmonary Disease
DX: Z12.2 Encounter for screening for malignant neoplasm of respiratory organs; F17.210 Nicotine dependence, cigarettes, uncomplicated
CPT/HCPCS: 71271; 99204

== ENCOUNTER → 2022-03-08 10:29 | Outpatient (BNVA) | payer MEDICARE, SELFPAY | PROVIDERS: PCP Family Medicine; Visit Provider Internal Medicine Pulmonary Disease | DX: B35.1 Tinea unguium (principal); L84 Corns and callosities; R06.09 Other forms of dyspnea; Z87.891 Personal history of nicotine dependence; J44.9 Chronic obstructive pulmonary disease, unspecified | CPT/HCPCS: 11055; 99203; 99214 ==

== ENCOUNTER 2022-04-01 06:00 | Outpatient (RCR) | payer MEDICARE, SELFPAY | END 2022-04-09 23:59 | disposition home or self-care (01) | LOC: MPT 06:00 | PROVIDERS: PCP Family Medicine; Visit Provider Internal Medicine Pulmonary Disease | DX: J44.9 Chronic obstructive pulmonary disease, unspecified (principal) | CPT/HCPCS: 97162 ==

== ENCOUNTER 2022-04-10 06:00 | Outpatient (RCR) | payer MEDICARE, SELFPAY | END 2022-05-10 23:59 | disposition home or self-care (01) | LOC: MPT 06:00 | PROVIDERS: PCP Family Medicine; Visit Provider Internal Medicine Pulmonary Disease | DX: J44.9 Chronic obstructive pulmonary disease, unspecified (principal) | CPT/HCPCS: 97110 ==

== ENCOUNTER 2022-04-12 09:20 | Outpatient (CLI) | payer MEDICARE, SELFPAY ==
--- NOTE | 2022-04-12 09:25 | MM_ITS ---
WS: [id number] BILATERAL SCREENING DIGITAL TOMOSYNTHESIS MAMMOGRAM WITH CAD HISTORY: SCREENING COMPARISON: 02/28/2021 and 01/31/2020 Bilateral CC and MLO views with tomosynthesis and synthetic mammography submitted. Computer aided det ection analyzed. Breast composition: There are scattered areas of fibroglandular density. No suspicious masses, microc alcifications or architectural distortion. MM/[place] [id number] IMPRESSION: BI-RADS: 1-Negative FOLLOW UP: 1 Year Follow-up
== END 2022-04-12 09:21 | disposition home or self-care (01) ==
PROVIDERS: PCP Family Medicine; Visit Provider Family Medicine
DX: Z12.31 Encounter for screening mammogram for malignant neoplasm of breast (principal)
CPT/HCPCS: 77063; 77067

== ENCOUNTER → 2022-05-01 12:53 | Outpatient (BNVA) | payer MEDICARE, SELFPAY | PROVIDERS: PCP Family Medicine; Visit Provider Nurse Practitioner Family | DX: R00.2 Palpitations (principal); Z87.891 Personal history of nicotine dependence | CPT/HCPCS: 99213 ==

== ENCOUNTER 2022-05-02 08:10 | Outpatient (CLI) | payer MEDICARE, SELFPAY ==
[2022-05-02 09:13] VITALS: BMI 31.7
--- NOTE | 2022-05-02 09:13 | ECG_ITS ---
[facility] Test Date: 2022-05-02 Pat Name: Dina Fair Department: Room: Gender: Female [employer] Guide: : 1960 Requested By: Chalino Aguilar Order Number: [id number] William MD: Kane Whelan M.D. Interpretive Statements NAME OF STUDY: LEXISCAN SESTAMIBI STRESS TEST INDICATION: [Dyspnea] Procedure: At the baseline, the blood pressure was 127/62 mmHg with a heart rate of 62 bpm. The electrocardiogram showed normal sinus rhythm, normal axis with normal ST and T's. The Lexiscan was infused over a period of 20 seconds. A total of 0.4 mg of Lexiscan was infused. The stress phase was continued for a total of 5 minutes. Heart rate was at the end of stress phase was 80 bpm and a blood pressure of 143/67 mmHg. The EKG at the peak infusion revealed normal sinus rhythm with no significant ST-T wave changes. Sestamibi was injected 20 seconds after the Lexiscan infusion. Blood pressure at the end of recovery phase was 138/66 mmHg with a heart rate of 71 bpm. Conclusion: 1. Normal EKG response to Lexiscan infusion 2. No Lexiscan induced chest pain or cardiac arrhythmia. 3. Normal blood pressure and heart rate response. 4. Sestamibi/sestamibi perfusion scan pending; see separate report. Electronically Signed On 06-09-2022 14:59:18 CDT by Kane Whelan M.D. [email or web address]
--- NOTE | 2022-05-02 09:14 | NMCV_ITS ---
NM shobha perf SPECT r/s* [id number] Dina Fair Age: 61 Gender: F : 1960 Exam Date: 05/02/2022 09:53 Ordering Phys: Chalino Díaz MD Technologist: AISHA Rangel Exam Location: [facility] Indications: SHORTNESS OF BREATH; NICOTINE DEPENDENCE; LUNG CANCER STRESS TEST [facility] IMAGE PROTOCOL Rest/Stress 1 Lexiscan Day Radiopharmaceutical Dose (mCi) Administration Site Administered by Rest: Tc-99m 10.7 IV AISHA Stone Sestamibi Stress:Tc-99m 32.5 IV AISHA Stone Sestamibi Rest: 02-May-2022 60 Discovery 630 Stress: 02-May-2022 30 Discovery 630 0.4mg Lexiscan. Images obtained in supine and prone position. SPECT RESULTS Technical Quality: Excellent Raw Data Analysis: Normal Image Corrections: No attenuation or motion correction applied Summed Stress Score: 0 Summed Rest Score: 0 Summed Difference Score: 0 PERFUSION FINDINGS SPECT images demonstrate homogeneous tracer distribution throughout the myocardium. FUNCTIONAL RESULTS (calculated via Gated SPECT) Stress Image LV EF (%): 88 Stress EDV (mL):43 TID: 0.95 Stress ESV (mL):5 FUNCTIONAL FINDINGS: There is normal left ventricular systolic function. IMPRESSIONS 1. Normal myocardial perfusion imaging with no evidence of ischemia 2. LV systolic function is normal Kane Whelan MD (Electronically Signed) Final Date: 05 May 2022 08:36 S
[2022-05-02] MEDS: regadenoson 0.4 Mg/5 ml Syringe IVP (10:19)
[2022-05-02 10:34] VITALS: BP 138/66; PULSE 74
[2022-05-02] MEDS: ondansetron 2 mg/ML SDV 2 mL 4 MG IVP (10:34)
== END 2022-05-02 08:11 | disposition home or self-care (01) ==
PROVIDERS: PCP Family Medicine; Visit Provider Internal Medicine Pulmonary Disease
DX: R06.02 Shortness of breath (principal); F17.200 Nicotine dependence, unspecified, uncomplicated; C34.90 Malignant neoplasm of unspecified part of unspecified bronchus or lung
CPT/HCPCS: 36415; 78452; 93017; 96374; A9500; J2405; J2785

== ENCOUNTER 2022-05-11 06:00 | Outpatient (RCR) | payer MEDICARE, SELFPAY | END 2022-06-09 23:59 | disposition home or self-care (01) | LOC: MPT 06:00 | PROVIDERS: PCP Family Medicine; Visit Provider Internal Medicine Pulmonary Disease | DX: J44.9 Chronic obstructive pulmonary disease, unspecified (principal); Z87.891 Personal history of nicotine dependence; Z12.2 Encounter for screening for malignant neoplasm of respiratory organs | CPT/HCPCS: 97110 ==

== ENCOUNTER 2022-07-24 13:10 | Outpatient (CLI) | payer MEDICARE, SELFPAY ==
--- NOTE | 2022-07-24 13:17 | USR_ITS ---
PROCEDURE INFORMATION: Exam: US Duplex Bilateral Lower Extremity Arteries Exam date and time: 07/24/2022 1:45 PM Age: 61 years old Clinical indication: Other: Neuropathy TECHNIQUE: Imaging protocol: Real-time ultrasound scan of the arteries of the bilateral lower extremities with 2-D parks scale, color Doppler flow and spectral waveform analysis. Images documented and saved. COMPARISON: pelvic limited [id number] 12/03/2021 10:41 AM FINDINGS: Right common femoral artery: Right lower extremity arterial system somewhat diffuse monophasic waveforms reflecting a degree of stenosis. Right superficial femoral artery: See above. Right popliteal artery: See above. Right calf/foot arteries: See above. Left common femoral artery: Left lower extremity arterial system somewhat diffuse biphasic waveforms reflecting a degree of stenosis. Left superficial femoral artery: See above. Left popliteal artery: See above. Left calf/foot arteries: See above. US/[place] [id number] IMPRESSION: 1. Right lower extremity arterial system somewhat diffuse monophasic waveforms reflecting a degree of stenosis. 2. Left lower extremity arterial system somewhat diffuse biphasic waveforms reflecting a degree of stenosis.
== END 2022-07-24 13:11 | disposition home or self-care (01) ==
PROVIDERS: PCP Family Medicine; Visit Provider Family Medicine
DX: G62.9 Polyneuropathy, unspecified (principal); M79.604 Pain in right leg
CPT/HCPCS: 93925

== ENCOUNTER → 2022-07-30 14:14 | Outpatient (BNVA) | payer MEDICARE, SELFPAY | PROVIDERS: PCP Family Medicine; Visit Provider Internal Medicine Cardiovascular Disease | DX: I73.9 Peripheral vascular disease, unspecified (principal); I47.1 Supraventricular tachycardia; Z72.0 Tobacco use | CPT/HCPCS: 99214 ==

== ENCOUNTER 2022-08-27 10:43 | Outpatient (CLI) | payer MEDICARE, SELFPAY ==
--- NOTE | 2022-08-27 11:00 | CTR_ITS ---
PROCEDURE INFORMATION: Exam: CT Chest Without Contrast; Diagnostic Exam date and time: 08/27/2022 11:08 AM Age: 61 years old Clinical indication: Abnormal findings; Abnormal radiologic exam of lung or chest; Prior surgery; Surgery date: 6+ months; Surgery type: Bilat shoulder, gb; Additional info: Abnormal ldct TECHNIQUE: Imaging protocol: Diagnostic computed tomography of the chest without contrast. Radiation optimization: All CT scans at this facility use at least one of these dose optimization techniques: automated exposure control; mA and/or kV adjustment per patient size (includes targeted exams where dose is matched to clinical indication); or iterative reconstruction. REPORTING DATA: Count of CT and Cardiac NM exams in prior 12 months: This patient has received 2 known CTs and 0 known cardiac nuclear medicine studies in the 12 months prior to the current study. COMPARISON: 1. CT lung screening [id number] 03/01/2022 9:[address] lung screening [id number] 12/15/2019 10:20 AM RADIATION DOSE METRICS: Total DLP (mGy-cm): 206.91 FINDINGS: Lungs: Resolved posterior right upper lobe ground-glass nodule. Developed bilateral lower lobe ground-glass nodules, measuring approximately 1.5 cm on the right on axial image 38 of series 5 and on the left on axial image 40 of series 5. Smaller left lower lobe ground-glass nodule on axial image 37 of series 5 measures approximately 0.6 cm. Subtle right lower lobe ground-glass nodularity on axial image 36 of series 5 measures approximately 0.9 cm. More confluent areas of ground-glass attenuation in the lateral right middle lobe. No consolidation or mass. Pleural spaces: Unremarkable. No pneumothorax. No pleural effusion. Heart: Unremarkable. No cardiomegaly. No pericardial effusion. Coronary arteries: Mild coronary artery calcification. Lymph nodes: Unremarkable. No enlarged lymph nodes. Vasculature: Mild to moderate systemic atherosclerotic calcification without aneurysmal dilatation. Liver: Stable subcentimeter left hepatic hypodensity likely represent cysts. Gallbladder and bile ducts: Prior cholecystectomy. Bones/joints: No acute fracture. Mild degenerative changes along the spine. Bilateral shoulder arthroplasties. Soft tissues: Unremarkable. CT/CT chest wo con [id number] IMPRESSION: Resolved right upper lobe ground-glass nodule with development of few bilateral lower lobe ground-glass nodules and more confluent areas of ground-glass attenuation in the right middle lobe. Favor infectious or inflammatory etiology. Recommend CT Chest at 1-3 months.
--- NOTE | 2022-08-27 11:00 | CTR_ITS ---
PROCEDURE INFORMATION: Exam: CTA Abdominal Aorta and Bilateral Lower Extremities (Run-off) With Contrast Exam date and time: 08/27/2022 11:19 AM Age: 61 years old Clinical indication: Condition or disease; Other: Pad; Prior surgery; Surgery date: 6+ months; Surgery type: Gb, emil hips, right femur, left hip, pain pump removed TECHNIQUE: Imaging protocol: Computed tomographic angiography of the of the abdominal aorta, pelvis and bilateral lower extremities with contrast. 3D rendering (Not supervised by radiologist): MIP and/or 3D reconstructed images were created by the technologist. Radiation optimization: All CT scans at this facility use at least one of these dose optimization techniques: automated exposure control; mA and/or kV adjustment per patient size (includes targeted exams where dose is matched to clinical indication); or iterative reconstruction. Contrast material: OMNI 350; Contrast volume: 95 ml; Contrast route: INTRAVENOUS (IV); REPORTING DATA: Count of CT and Cardiac NM exams in prior 12 months: This patient has received 2 known CTs and 0 known cardiac nuclear medicine studies in the 12 months prior to the current study. COMPARISON: 1. CT chest wo con [id number] 08/27/2022 11:[address] abdomen pelvis w con* [id number] 02/12/2021 2:11 PM 3. MR MRCP [id number] 12/11/2020 7:27 AM 4. [place] [id number] 07/24/2022 1:45 PM RADIATION DOSE METRICS: Total DLP (mGy-cm): 647.4 FINDINGS: Aorta: Moderate aortoiliac atherosclerotic calcification. No aortic aneurysm. No aortic dissection. Celiac trunk and mesenteric arteries: No occlusion or significant stenosis. Renal arteries: No occlusion or significant stenosis. Bilateral accessory renal arteries. Right iliac arteries: High-grade focal stenosis of the right common iliac artery origin without complete occlusion. Otherwise normal opacification. Right femoral/popliteal arteries: No occlusion or significant stenosis. Right infrapopliteal arteries: No occlusion or significant stenosis. Left iliac arteries: Moderate focal stenosis at the left common iliac artery origin. Otherwise normal opacification. Left femoral/popliteal arteries: No occlusion or significant stenosis with note obscuration by metallic streak artifact at the level of the knee. Left infrapopliteal arteries: No occlusion or significant stenosis. Liver: Stable 1 cm left hepatic cyst. Gallbladder and bile ducts: Prior cholecystectomy without biliary ductal dilatation. Pancreas: Unremarkable. No mass. No ductal dilation. Spleen: Normal. No splenomegaly. Adrenal glands: Normal. No mass. Kidneys and ureters: Unremarkable. No hydronephrosis. Distalmost ureters obscured by metallic streak artifact. Stomach and bowel: No bowel dilatation. No mucosal thickening. Colonic diverticulosis without findings of diverticulitis. Appendix: No evidence of appendicitis. Urinary bladder: Unremarkable. No mass. Reproductive: The uterus is surgically absent. Intraperitoneal space: Unremarkable. No free air. No significant fluid collection. Lymph nodes: No lymphadenopathy. Bones/joints: No acute fracture. Bilateral total hip arthroplasties, right femoral plate and screw fixation, and left total knee arthroplasty. Mild degenerative changes along the spine. Serpentine centrally lucent lesions with thin sclerotic rims at both distal femora, right proximal tibia, both distal tibiae, bilateral talus, right calcaneus, and [id number]-right navicular in keeping with bone infarcts. Soft tissues: Postsurgical scarring at both hips and the left knee. Abandoned lead at the lateral right lower abdominal wall subcutaneous tissues. Other findings: Please see chest CT performed earlier today for thoracic findings. CT/CT angio abd aorta runof [id number] IMPRESSION: 1. Moderate atherosclerosis with high-grade proximal right common iliac artery stenosis and moderate proximal left common iliac artery stenosis. 2. 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 3. Additional chronic and incidental findings as above, to include colonic diverticulosis.
[2022-08-27 11:19] LABS: Blood Urea Nitrogen 14 mg/dL (8-23); Glomerular Filtration Rate 84.5 mL/min (90-130)
[2022-08-27] MEDS: iohexol 350 mg/mL 500 mL Btl (per mL) IV (11:30)
== END 2022-08-27 10:44 | disposition home or self-care (01) ==
LOC: RAD 10:45
PROVIDERS: Internal Medicine Cardiovascular Disease; PCP Family Medicine; Visit Provider Internal Medicine Pulmonary Disease
DX: R93.89 Abnormal findings on diagnostic imaging of other specified body structures (principal); R91.8 Other nonspecific abnormal finding of lung field; I70.8 Atherosclerosis of other arteries; I73.9 Peripheral vascular disease, unspecified; M89.8X8 Other specified disorders of bone, other site; Z98.890 Other specified postprocedural states
CPT/HCPCS: 71250; 75635; 82565; 84520; Q9967

== ENCOUNTER → 2022-09-05 09:04 | Outpatient (BNVA) | payer MEDICARE, SELFPAY | PROVIDERS: PCP Family Medicine; Visit Provider Internal Medicine Pulmonary Disease | DX: J44.9 Chronic obstructive pulmonary disease, unspecified (principal); Z87.891 Personal history of nicotine dependence | CPT/HCPCS: 99214 ==

== ENCOUNTER → 2022-09-13 09:09 | Outpatient (BNVA) | payer MEDICARE, SELFPAY | PROVIDERS: PCP Family Medicine; Visit Provider Internal Medicine Cardiovascular Disease | DX: I73.9 Peripheral vascular disease, unspecified (principal) | CPT/HCPCS: 80048; 85025; 85610 ==

== ENCOUNTER 2022-09-17 05:45 | Outpatient (CLI) | payer MEDICARE, SELFPAY ==
[2022-09-17] VITALS (40 sets, daily range): BP systolic 118–154; BP diastolic 65–91; PULSE 56–85; RESP 14–19; TEMP 36.7–36.8; O2SAT 87–98; BMI 25.7
--- NOTE | 2022-09-17 06:00 | XACV_ITS ---
Ht: 163 cm Wt: 68 kg BSA: 1.77 m2 Any Known Allergies: Other Gender: Female : 1960 Exam Type: Invasive Peripheral Vascular Procedure(s): Procedure Description: Peripheral Cath Diagnostic Procedure Procedure Description: Abdominal aortic angiography Procedure Description: Lower extremities' angiography Exam Priority: Routine Abdominal Diagnostic Findings INDICATION: 61-year-old woman with past medical history of tobacco abuse, COPD, hypertension who has been referred for peripheral angiogram as she has been having severe lifestyle limiting claudication symptoms. Symptoms are worse on the right lower extremity. She is already on cilostazol. CTA with runoff was performed that shows severe stenosis in the right iliac artery. Distal abdominal aorta: Has severely calcified distal abdominal aorta with stenosis right before the bifurcation. Lower Extremity Diagnostic Findings Right lower extremity findings: Right common iliac artery has ostial, heavily calcified 90% stenosis extending into distal abdominal aorta. Right external iliac artery is patent. Right common femoral artery is patent. Right profunda artery is patent. Right SFA is patent. Right popliteal artery is patent. Right anterior tibial artery is patent. Right TP trunk is patent. Right peroneal artery is patent. Right posterior tibial artery is patent.. Left lower extremity findings: Left common iliac artery has ostial moderate stenosis and is calcified. Left external iliac artery is patent Common femoral artery is patent. The left profunda artery is patent. Left SFA is patent. Left popliteal arteries. Below the knee vessels do not opacify well with slow flow. Stenosis cannot be ruled out.. Conclusions Severe aorto iliac disease. We will refer to vascular surgery for intervention as has calcified distal aorta. Recommendations Continue aggressive risk factor modification. Outpatient follow up in 2 weeks. Hemodynamic Data Phase:Rest AO : 140.0 / 61.0 ( 88.0 ) @ 9:08:00 AM 92.0 / 60.0 ( 76.0 ) @ 9:12:00 AM Access Site Site: Right Femoral artery Sheath Size: 6 Fr Hemost... Method: Mynx Hemost... Success: Successful Procedure Details Findings Procedure Consent Obtained. Pre-Procedure Time Out. Identified patient by full name and date of as verbalized by the patient/guarantor. Does the consent match the physician's order: Yes. Accurate & Complete Informed Consent: Yes. Inpatient/Outpatient History & Physical on Chart: Yes. If H&P is completed, is and addenduem needed: No. Visualize and Verify Site with Patient/Guarantor: N/A. Relevant Radiology Images available: Yes. Current diagnosis: PAD. PERRLA. Strong, equal hand catering cook bilaterally. Lungs clear x 5 lobes. IV Site on Arrival: 20 gauge in the left anticubital. IV Fluids: 0.9% NaCl at KVO. 0 mL infused prior to construction or leak gang laborer. Pre Procedural Pulses: bilateral posterior tibial was 1+. Pre Procedural Pulses: right dorsalis pedis was 1+. Pre Procedural Pulses: left dorsalis pedis was 3+. The risks, benefits, and alternatives of sedation and/or procedure were discussed by physician. The patient agrees to continue. Procedure started. Correct patient, site and procedure confirmed by cath team. Oxygen started at 2liters/min via nasal canula. bilateral groins was prepped with chloroprep then draped in the usual sterile fashion. Physician notified. Baseline sample Acquired. HR: 61 BPM. Equipment: 6F - Femoral. Cardiac Cath Pack. ACIST Manifold Kit Model BT 2000. Heparinized Saline (2 units/mL), 1000 mL bag. Kit, Micropuncture. Physician arrived. Physician scrubbed in. Time out performed with cath team. Lidocaine 1% infiltrated to the left groin. Arterial access obtained with micropuncture set. A 5Fr UF catheter in over wire. Pigtail postioned above the bifurcation of the iliacs. Aortagram performed @ 10 mL/sec for a total of 30 mL. Left common femoral selected and arteriogram with runoff performed @ 10 mL/sec for a total of 30 mL. Sheath injected in Left common femoral artery and runoff performed at 10 mL/sec for a total of 30mL. Left common femoral selected and arteriogram with runoff performed @ 10 mL/sec for a total of 30 mL. Catheter removed over the standard wire. A Mynx was successful obtaining hemostatsis at the Right Femoral artery insertion site. Mynx placed without complications. No signs or symptoms of hematoma noted. Sterile dressing applied per usual sterile fashion. Lot #[id number]. Exp. 2022-11-09. Post Procedure: Pulses reassessed and unchanged. PERRLA. Strong, equal hand catering cook bilaterally. No VTE prophylaxis required. Medication's Wasted: Heparin = 1000 Units. Total IV fluids: 35 mL. Complications: none. Post-op diagnosis: Severe PVD. Surgical consult. Estimated blood loss: 5mL-10mL. Responsiveness - Normal response to verbal stimuli; alert and oriented, PERRLA. Airway - Unaffected, no intervention required; spontaneous ventilation. Circulation: W/N/L, pulses unchanged. Nausea/Vomiting: No. Procedure completed. Patient transferred by bed to CPRU. Vital chart was stopped. Procedure Medications Start: 7:51 AM Stop: 7:51 AM Medication: Versed Amount: 1 mg Route: I.V. Start: 7:51 AM Stop: 7:51 AM Medication: Fentanyl Amount: 50 mcg Route: I.V. Start: 7:54 AM Stop: 7:54 AM Medication: Versed Amount: 1 mg Route: I.V. Start: 8:01 AM Stop: 8:01 AM Medication: Versed Amount: 1 mg Route: I.V. Start: 8:01 AM Stop: 8:01 AM Medication: Fentanyl Amount: 25 mcg Route: I.V. Start: 8:05 AM Stop: 8:05 AM Medication: Versed Amount: 1 mg Route: I.V. Start: 8:05 AM Stop: 8:05 AM Medication: Fentanyl Amount: 25 mcg Route: I.V. I, the attending physician, have reviewed and verified all procedure medications. Yes, all medications given per verbal order History/Risk Factors Hypertension: Yes Dyslipidemia: Yes Peripheral Arterial Disease (PAD): Yes Obesity: No Renal Disease: No Tobacco Use: Former Prior Interventions PCI: No CABG: No Valve Surgery: No Report Signatures Finalized by Kane Whelan MD on 09/30/2022 09:37 AM
--- NOTE | 2022-09-17 07:47 | W.PM.OPSFHP ---
Same Day Surgery H&P Indication for Procedure/HPI DATE OF PROCEDURE: September 17, 2022 CHIEF COMPLAINT/INDICATIONFOR SURGICAL PROCEDURE: Lifestyle limiting claudication PREOP DIAGNOSIS: Lifestyle limiting claudication PLANNED PROCEDURE: Operation Date: 09/17/22 07:00 Proposed Procedures p Peripheral Angiogram 75414, I73.9,R93.89(Not Applicable) - Kane Whelan M.D Possible percutaneous intervention 61-year-old woman with past medical history of tobacco abuse, COPD, hypertension who has been referred for peripheral angiogram as she has been having severe lifestyle limiting claudication symptoms. Symptoms are worse on the right lower extremity. She is already on cilostazol. CTA with runoff was performed that shows severe stenosis in the right iliac artery. Medications/Allergies* Home Medications Medication Instructions Recorded Confirmed Type valsartan 160 1 tab PO DAILY 03/09/20 09/17/22 History mg-hydrochlorothiazide 12.5 mg tablet acetaminophen 650 mg 650 mg PO Q12H PRN Pain 01/24/22 09/17/22 History tablet,extended release (Tylenol 8 Hour) Healthy Feet & Nerves PO 07/30/22 09/05/22 History albuterol sulfate 90 mcg/actuation 2 puff inhalation Q6H PRN 07/30/22 09/17/22 History aerosol inhaler Shortness Of Breath Or Wheezing ascorbic acid (vitamin C) 1,000 mg 1,000 mg PO DAILY 07/30/22 09/17/22 History tablet bilberry 100 mg capsule 100 mg PO BID 07/30/22 09/17/22 History omega-3 fatty acids 1,000 mg 1,000 mg PO DAILY 07/30/22 09/17/22 History capsule vit C 250 mg-vit E 200 unit-zinc 1 cap PO DAILY 07/30/22 09/17/22 History ox 12.5 pn-faggko-zxzaft-zeax capsule (ICaps AREDS2) vitamin A 2,400 mcg capsule 2,400 mcg PO DAILY 07/30/22 09/17/22 History vitamin E acetate 134 mg (200 134 mg PO DAILY 07/30/22 09/17/22 History unit) capsule aspirin 81 mg tablet,delayed 81 mg PO DAILY 08/28/22 09/17/22 History release (Adult Low Dose Aspirin) Allergies/Adverse Reactions Allergy/AdvReac Type Severity Reaction Status Date / Time Sulfa (Sulfonamide Allergy Severe hives Verified 09/05/22 09:24 Antibiotics) sumatriptan [From Imitrex] Allergy Severe hives Verified 09/05/22 09:24 Current Medications: Generic Name Dose Route Start Last Admin Trade Name [place] PRN Reason Stop Dose Admin Sodium Chloride 1,000 mls @ 50 mls/hr 09/17/22 06:00 09/17/22 06:39 Sodium Chloride 0.9% IV 09/18/22 01:59 Not Given .Q20H ONE Pertinent History/Comorbid Conditions* Medical History (Updated 08/04/22 @ 14:51 by Hannah Christian MD) COPD (chronic obstructive pulmonary disease) Diabetes FH: bilateral hip replacements Onychomycosis Osteoporosis PAD (peripheral artery disease) Paroxysmal SVT (supraventricular tachycardia) Spinal stenosis Surgical History (Updated 02/25/22 @ 12:32 by Monse Myrick DO) H/O abdominal hysterectomy History of cholecystectomy History of left knee replacement History of replacement of both shoulder joints History of surgery on lower extremity S/P bilateral hip replacements Family History (Updated 01/24/22 @ 12:05 by Alma Liao RN) Adopted Social History Smoking and tobacco status: former smoker Quit status (tobacco): has quit using tobacco Year quit tobacco: 2020 Former quit date comment: 1 ppd X 38 years Alcohol intake: current Alcohol intake frequency: 3 or more drinks per day Alcohol type: beer Substance/Drug Use: never Adopted: Yes Marital status: Number of children: 0 service: No Pertinent Exam Findings alert, oriented x 3 and clear to auscultation bilaterally Pulses weak but palpable bilaterally in the feet. Conscious Sedation Assessment PATIENT ASSESSED PRIOR TO SEDATION, WITH NO CHANGE NOTED: Yes AIRWAY EVAL/ANESTHESIA PLAN: normal airway, ASA III, Local Anesthesia, Risks, benefits & alternatives of sedation and/or procedure discussed and Patient agrees to continue as planned ADDITIONAL INFORMATION: Moderate sedation Recommendations Surgery/Procedure today (Peripheral angiogram with possible intervention) Coding Level of Care Code Acute Code for Chg Fwd Diagnoses
[2022-09-17] MEDS: cilostazol 100 mg Tablet 50 MG PO (18:07)
[2022-09-17] MEDS: acetaminophen 325 mg Tablet 650 MG PO (18:11)
[2022-09-17] MEDS: ipratropium-albuterol 3 mL Neb INHALATION (19:17)
[2022-09-17] MEDS: budesonide 0.5 mg/2 mL Neb INHALATION (19:17)
[2022-09-17] MEDS: atorvastatin 40 mg Tablet 20 MG PO (20:51)
[2022-09-17] MEDS: metoprolol tartrate 25 mg Tablet PO (20:51)
[2022-09-18 01:00] VITALS: BP 107/59; PULSE 58; RESP 16; TEMP 36.8; O2SAT 95
[2022-09-18 03:59] VITALS: BP 105/55; PULSE 62; RESP 17; TEMP 36.7; O2SAT 98
[2022-09-18 05:07] VITALS: PULSE 60
[2022-09-18] MEDS: ipratropium-albuterol 3 mL Neb INHALATION (08:11)
[2022-09-18] MEDS: budesonide 0.5 mg/2 mL Neb INHALATION (08:11)
[2022-09-18 08:12] VITALS: PULSE 69; RESP 16; O2SAT 97
--- NOTE | 2022-09-18 08:25 | P.PN_ITS ---
Subjective Subjective: Patient had peripheral angiogram yesterday. Doing well. Had severe aortoiliac disease Vitals/I&O/Wt Last Vital Signs Temp 98.1 F 09/18/22 03:59 Pulse 69 09/18/22 08:12 Resp 16 09/18/22 08:12 BP 105/55 09/18/22 03:59 Pulse Ox 97 09/18/22 08:12 O2 Del Method Nasal Cannula 09/18/22 08:12 O2 Flow Rate 1 09/18/22 08:12 09/17/22 09/18/22 09/18/22 22:59 06:59 14:59 Intake Total 750 / 750 Balance 750 / 750 Weight last 48 hrs Weight 150 lb Physical Exam Narrative: GENERAL: Patient is alert, awake and oriented x3. [] NECK: No jugular vein distension. [] HEENT: No cyanosis. No icterus. No pallor. [] HEART: Regular S1 and S2. No murmur, rub or gallop. [] LUNGS: Clear to auscultate bilaterally. [] CENTRAL NERVOUS SYSTEM: Grossly nonfocal. [] EXTREMITIES: Lower extremities with no edema. Difficult to palpate pulses bilaterally. Data 09/18/22 07:54 A&P Assessment and plan (1) PAD (peripheral artery disease): Plan Patient had peripheral angiogram yesterday that showed significant aortoiliac disease. Patient was observed overnight and stayed stable. We will plan on sending her vascular surgery for evaluation regarding revascularization options. She has significant aortoiliac disease with heavy calcification. Attestations Medical Necessity Statement*: Care not expected to cross 2 midnights. Coding Level of Care Code Acute Code for [facility] Diagnoses PAD (peripheral artery disease) I73.9
[2022-09-18 08:55] LABS: Anion Gap 12.6 (5-19); Blood Urea Nitrogen 9 mg/dL (8-23); Calcium 8.9 mg/dL (8.5-10.5); Carbon Dioxide 27 mmol/L (22-29); Chloride 102 mmol/L (98-107); Glomerular Filtration Rate 124.6 mL/min (90-130); Glucose 117 mg/dL (65-115); Osmolality Calculated 286 mOsm/kg (285-295); Potassium 3.6 mmol/L (3.5-5.1); Sodium 138 mmol/L (136-145)
[2022-09-18] MEDS: aspirin 81 mg EC Tablet PO (09:03)
[2022-09-18] MEDS: atorvastatin 40 mg Tablet 20 MG PO (09:03)
[2022-09-18] MEDS: losartan 50 mg Tablet PO (09:03)
[2022-09-18] MEDS: hydroCHLOROthiazide 25 mg Tablet 12.5 MG PO (09:05)
[2022-09-18] MEDS: metoprolol tartrate 25 mg Tablet PO ×2 (09:05)
[2022-09-18] MEDS: cilostazol 100 mg Tablet 50 MG PO (09:06)
--- NOTE | 2022-09-18 11:19 | PC.NURSE ---
Discharge Note Patient discharged to [home] via [POV] accompanied by [spouse]. Discharge instructions reviewed with patient and/or medical service representative. Mobile pharmacy medications and/or prescriptions provided. Belongings/home medications returned.
== END 2022-09-18 11:07 | disposition home or self-care (01) ==
LOC: CCL 05:46 → CSU 09:28
PROVIDERS: PCP Family Medicine; Visit Provider Internal Medicine
DX: I70.213 Atherosclerosis of native arteries of extremities with intermittent claudication, bilateral legs (principal); J44.9 Chronic obstructive pulmonary disease, unspecified; I10 Essential (primary) hypertension; Z87.891 Personal history of nicotine dependence
CPT/HCPCS: 36415; 75625; 75716; 80048; 94640; 96361; 96365; 96376; 99152; 99153; C1760; C1769; C1887; C1894; J1644; J2250; J3010; J7030; J7626; Q0163; Q9967

== ENCOUNTER → 2022-09-20 09:05 | Outpatient (BNVA) | payer MEDICARE, SELFPAY | PROVIDERS: PCP Family Medicine; Visit Provider Nurse Practitioner Family | DX: I73.9 Peripheral vascular disease, unspecified (principal); Z87.891 Personal history of nicotine dependence | CPT/HCPCS: 80048; 99214 ==

== ENCOUNTER 2022-11-28 13:33 | Outpatient (CLI) | payer MEDICARE, SELFPAY ==
--- NOTE | 2022-11-28 13:39 | MR_ITS ---
WS: [id number] MRI LUMBAR SPINE WITH AND WITHOUT CONTRAST HISTORY: Low back pain rating down both legs. No injury. Chronic. COMPARISON: None available. TECHNIQUE: Sagittal and axial multisequence imaging is submitted. Postcontrast sequences, 14 mL Multi Brian. Very mild increase in the lumbar lordosis. Disc spaces are mildly narrowed and desiccated. No fractur es or marrow edema. Conus terminates normally at L1-2 disc level. L1-L2: Normal. L2-L3: Mild ligamentum flavum hypertrophy. No stenosis. L3-L4: Very mild annular disc bulging. Disc contacts the traversing L4 nerve roots without displaceme nt. Mild ligamentum flavum and facet arthritis. L4-L5: Mild annular disc bulging with marked ligamentum flavum and facet arthritis. There is fluid in the facet joints, greatest on the LEFT. Disc encroaches upon the thecal sac and the subarticular rec esses. Mild contact on the traversing L5 nerve roots. Moderate bilateral foraminal stenosis. L5-S1: Mild annular disc bulging. Mild bilateral facet joint arthritis. No significant stenosis. Paravertebral soft tissues are normal. On the postcontrast imaging there is no discitis or osteomyelitis. No epidural abscess. IMPRESSION: 1. L4-5: Mild disc encroachment upon the subarticular recesses. Mild contact on the traversing L5 ner ve roots. Moderate bilateral foraminal stenosis. 2. L3-4: Mild annular disc bulging with mild encroachment upon the traversing L4 nerve roots. No high -grade stenosis. 3. Facet joint arthritis from L2-3 through L5-S1. Most significant at the L4-5 level. 4. No discitis or osteomyelitis.
[2022-11-28] MEDS: gadobenate dimeglumine 20 mL vial IV (14:38)
== END 2022-11-28 13:34 | disposition home or self-care (01) ==
LOC: RAD 13:34
PROVIDERS: PCP Family Medicine; Visit Provider Surgery
DX: M48.061 Spinal stenosis, lumbar region without neurogenic claudication (principal); M47.817 Spondylosis without myelopathy or radiculopathy, lumbosacral region; M51.36 Other intervertebral disc degeneration, lumbar region
CPT/HCPCS: 72158; A9577

== ENCOUNTER 2022-12-11 09:10 | Outpatient (CLI) | payer MEDICARE, SELFPAY ==
--- NOTE | 2022-12-11 09:30 | CTR_ITS ---
PROCEDURE INFORMATION: Exam: CT Chest Without Contrast; Diagnostic Exam date and time: 12/11/2022 9:31 AM Age: 62 years old Clinical indication: Abnormal findings; Abnormal radiologic exam of lung or chest; Patient HX: : . Resolved right upper lobe ground-glass nodule with development of few bilateral lower lobe ground-glass nodules and more confluent areas of ground-glass attenuation in the right middle lobe. Favor infectious or inflammatory etiology. Recommend CT chest at 1-3 months; Additional info: 3 month f/u TECHNIQUE: Imaging protocol: Diagnostic computed tomography of the chest without contrast. Radiation optimization: All CT scans at this facility use at least one of these dose optimization techniques: automated exposure control; mA and/or kV adjustment per patient size (includes targeted exams where dose is matched to clinical indication); or iterative reconstruction. REPORTING DATA: Count of CT and Cardiac NM exams in prior 12 months: This patient has received 4 known CTs and 0 known cardiac nuclear medicine studies in the 12 months prior to the current study. COMPARISON: CT chest wo con [id number] 08/27/2022 11:08 AM RADIATION DOSE METRICS: Total DLP (mGy-cm): 276.16 FINDINGS: Lungs: Ground-glass opacification appears to have resolved. No lung mass or significant consolidation. Pleural spaces: Unremarkable. No pneumothorax. No pleural effusion. Heart: Unremarkable. No cardiomegaly. No pericardial effusion. Coronary arteries: There is coronary artery calcification. Lymph nodes: Unremarkable. No enlarged lymph nodes. Vasculature: Unremarkable. No aortic aneurysm. Bones/joints: There has been bilateral shoulder replacements. Degenerative change is identified in the spine. There is no evidence for acute fracture or malalignment. Soft tissues: Unremarkable. CT/CT chest wo con [id number] IMPRESSION: There are no acute concerning abnormalities.
== END 2022-12-11 09:11 | disposition home or self-care (01) ==
PROVIDERS: PCP Family Medicine; Visit Provider Internal Medicine Pulmonary Disease
DX: R91.8 Other nonspecific abnormal finding of lung field (principal)
CPT/HCPCS: 71250

== ENCOUNTER → 2022-12-26 10:06 | Outpatient (BNVA) | payer MEDICARE, SELFPAY | PROVIDERS: PCP Family Medicine; Referring Provider Family Medicine; Visit Provider Orthopaedic Surgery | DX: M48.062 Spinal stenosis, lumbar region with neurogenic claudication (principal); M51.36 Other intervertebral disc degeneration, lumbar region; M47.816 Spondylosis without myelopathy or radiculopathy, lumbar region; M89.29 Other disorders of bone development and growth, multiple sites; M85.88 Other specified disorders of bone density and structure, other site | CPT/HCPCS: 72110; 99204 ==

== ENCOUNTER → 2023-01-28 13:48 | Outpatient (BNVA) | payer MEDICARE, SELFPAY | PROVIDERS: PCP Family Medicine; Visit Provider Internal Medicine Cardiovascular Disease | DX: I73.9 Peripheral vascular disease, unspecified (principal); Z72.0 Tobacco use; I47.19 Other supraventricular tachycardia | CPT/HCPCS: 99214 ==

== ENCOUNTER → 2023-02-19 09:52 | Outpatient (BNVA) | payer MEDICARE, SELFPAY | PROVIDERS: PCP Family Medicine; Visit Provider Anesthesiology Pain Medicine | DX: G89.29 Other chronic pain; M51.16 Intervertebral disc disorders with radiculopathy, lumbar region; I73.9 Peripheral vascular disease, unspecified | CPT/HCPCS: 99205 ==

== ENCOUNTER → 2023-03-05 13:19 | Outpatient (BNVA) | payer MEDICARE, SELFPAY | PROVIDERS: PCP Family Medicine; Visit Provider Anesthesiology Pain Medicine | DX: M54.16 Radiculopathy, lumbar region | CPT/HCPCS: 64483; 64484; J1100; J3490 ==

== ENCOUNTER → 2023-03-06 09:56 | Outpatient (BNVA) | payer MEDICARE, SELFPAY | PROVIDERS: PCP Family Medicine; Visit Provider Internal Medicine Pulmonary Disease | DX: J44.9 Chronic obstructive pulmonary disease, unspecified (principal); Z12.2 Encounter for screening for malignant neoplasm of respiratory organs; Z87.891 Personal history of nicotine dependence | CPT/HCPCS: 99214 ==

== ENCOUNTER → 2023-03-19 09:02 | Outpatient (BNVA) | payer MEDICARE, SELFPAY | PROVIDERS: PCP Family Medicine; Visit Provider Anesthesiology Pain Medicine | DX: M48.062 Spinal stenosis, lumbar region with neurogenic claudication (principal); G89.29 Other chronic pain; I73.9 Peripheral vascular disease, unspecified; M51.16 Intervertebral disc disorders with radiculopathy, lumbar region | CPT/HCPCS: 99214 ==

== ENCOUNTER → 2023-03-24 09:50 | Outpatient (BNVA) | payer MEDICARE, SELFPAY | PROVIDERS: PCP Family Medicine; Visit Provider Nurse Practitioner Family | DX: D48.5 Neoplasm of uncertain behavior of skin (principal); L57.0 Actinic keratosis; L84 Corns and callosities; L82.1 Other seborrheic keratosis; L57.8 Other skin changes due to chronic exposure to nonionizing radiation; D22.4 Melanocytic nevi of scalp and neck; L81.4 Other melanin hyperpigmentation | CPT/HCPCS: 69100; 99213 ==

== ENCOUNTER → 2023-03-28 14:31 | Outpatient (BNVA) | payer MEDICARE, SELFPAY | PROVIDERS: PCP Family Medicine; Visit Provider Orthopaedic Surgery | DX: M48.062 Spinal stenosis, lumbar region with neurogenic claudication (principal); Z01.812 Encounter for preprocedural laboratory examination | CPT/HCPCS: 80053; 81001; 85025; 99214 ==

== ENCOUNTER 2023-04-09 11:04 | Day surgery (SDC) | payer MEDICARE, SELFPAY ==
[2023-04-09] VITALS (13 sets, daily range): BP systolic 121–171; BP diastolic 61–80; PULSE 59–101; RESP 13–20; TEMP 36.3–36.8; O2SAT 92–97; BMI 24.5
--- NOTE | 2023-04-09 08:46 | XR_ITS ---
WS: [id number] INTRAOPERATIVE TECHNIQUE: 2 Spot fluoroscopic images for intraoperative purposes. FLUOROSCOPY TIME: 7.0 seconds CLINICAL INFORMATION: OR PICS COMPARISON: None. FINDINGS: Localization marker projected over the RIGHT L4-5 interspace dorsally IMPRESSION: Images obtained for intraoperative purposes.
[2023-04-09] MEDS: sodium chloride 0.9% 1,000 ML 30 ML IV (11:44)
--- NOTE | 2023-04-09 13:18 | ANES.PREANE2 ---
Pre-Anesthetic Assessment Height/Weight: Height 1.63 m Weight 64.864 kg Temp Pulse Resp BP Pulse Ox O2 Del Method 97.4 F L 63 16 169/80 97 Room Air 04/09/23 11:25 04/09/23 11:25 04/09/23 11:25 04/09/23 11:25 04/09/23 11:25 04/09/23 11:25 Preop Diagnosis: Lumbar stenosis with neurogenic claudication Operation Date: 04/09/23 12:40 Proposed Procedures p Lumbar Spine Decompression Lumbar Decompression/ standing on right side(Bilateral) - Tone Grier, Familial anesthetic complications: none Was Beta Tone taken within 24 hours: Yes Was Clonidine taken within 24 hours: N/A Last intake: Intake Last Liquid Date 04/08/23 Last Liquid Time 23:00 Last Solid Date 04/08/23 Last Solid Time 17:00 Social Alcohol (daily beer) and No tobacco (h/o smoking) Exam alert, oriented x 3, clear to auscultation bilaterally and regular rate & rhythm Airway Submandibular: within normal limits Cervical ROM: within normal limits Mallampati: Class II Dentition: caps Pulmonary Chronic Obstructive Pulmonary Disease and Sleep Apnea CV/HEM Arrythmia (SVT), Hypertension and Peripheral Vascular Disease Hepatic Hepatitis (C) Musc/skel Lower Back Pain and Osteoarthritis/DJD Anesthetic Plan ASA status: 3 Anesthesia: General Medications/Allergies Home Medications Medication Instructions Recorded Confirmed Last Taken Type valsartan 160 1 tab PO DAILY 03/09/20 04/08/23 04/08/23 History mg-hydrochlorothiazide 12.5 mg tablet cetirizine 10 mg capsule (Zyrtec) 10 mg PO DAILY PRN allergy 05/04/21 04/09/23 Unknown Rx symptoms #60 caps acetaminophen 650 mg 650 mg PO Q12H PRN Pain 01/24/22 04/08/23 04/06/23 History tablet,extended release (Tylenol 8 Hour) ascorbic acid (vitamin C) 1,000 mg 1,000 mg PO DAILY 07/30/22 04/08/23 04/04/23 History tablet bilberry 100 mg capsule 100 mg PO BID 07/30/22 04/08/23 04/06/23 History omega-3 fatty acids 1,000 mg 1,000 mg PO DAILY 07/30/22 04/08/23 04/04/23 History capsule vitamin A 2,400 mcg capsule 2,400 mcg PO DAILY 07/30/22 04/08/23 04/08/23 History vitamin E acetate 134 mg (200 134 mg PO DAILY 07/30/22 04/08/23 04/04/23 History unit) capsule aspirin 81 mg tablet,delayed 81 mg PO DAILY 08/28/22 04/08/23 04/04/23 History release (Adult Low Dose Aspirin) cholecalciferol (vitamin D3) 50 50 mcg PO DAILY 09/18/22 04/08/23 04/04/23 History mcg (2,000 unit) tablet (Vitamin D3) garlic extract 400 mg tablet 400 mg PO DAILY 09/18/22 04/08/23 04/04/23 History albuterol sulfate 90 mcg/actuation 2 puff inhalation Q6H PRN 10/22/22 04/08/23 04/09/23 06:30 Rx aerosol inhaler Shortness Of Breath Or Wheezing #8.5 grams metoprolol tartrate 50 mg tablet 50 mg PO BID #180 tabs 01/28/23 04/08/23 04/09/23 06:30 Rx simvastatin 10 mg tablet 10 mg PO DAILY #90 tabs 01/28/23 04/08/23 04/08/23 Rx fluticasone fur. 100 mcg-umeclid 1 inh inhalation DAILY #60 ea 02/14/23 04/08/23 04/08/23 Rx 62.5 mcg-vilant 25 mcg inhalat.powder (Trelegy Ellipta) Allergies Allergy/AdvReac Type Severity Reaction Status Date / Time Sulfa (Sulfonamide Allergy Severe hives Verified 04/09/23 11:13 Antibiotics) sumatriptan [From Imitrex] Allergy Severe hives Verified 04/09/23 11:13 Current Medications Generic Name Dose Route Start Last Admin Trade Name Freq PRN Reason Stop Dose Admin Sodium Chloride 1,000 mls @ 30 mls/hr 04/09/23 11:15 04/09/23 11:44 Sodium Chloride 0.9% IV 04/10/23 11:14 30 mls/hr .Q24H CITLALI Administration PFSH Anesthesia Medical History Hx of hepatitis C Hx acute, no chronic. Never had tx, viral load neg Prediabetes PAD (peripheral artery disease) Paroxysmal SVT (supraventricular tachycardia) COPD (chronic obstructive pulmonary disease) Osteoporosis Spinal stenosis FH: bilateral hip replacements Onychomycosis Surgical History History of surgery on lower extremity S/P bilateral hip replacements H/O abdominal hysterectomy History of left knee replacement History of replacement of both shoulder joints History of cholecystectomy Family History Other Adopted Social History Smoking and tobacco/nicotine status: former use of tobacco/nicotine Quit status (tobacco/nicotine): has quit using Year quit tobacco: 2020 Former quit date comment: 1 ppd X 38 years Alcohol intake: current Alcohol intake frequency: 3 or more drinks per day Alcohol type: beer Substance/Drug Use: never Adopted: Yes Marital status: Number of children: 0 service: No Female Reproductive History Spontaneous abortions: No Data Anesthesia Cardiac Studies: Sestamibi Stress Test (Cardiology) 05/02/22 Holter Monitor 11/21/21
[2023-04-09] MEDS: HYDROmorphone 1 mg/mL INJ 1 mL 0.5 MG IVP (13:24)
--- NOTE | 2023-04-09 14:04 | W.PM.OPSUD ---
Surgery/Procedure H&P Update DATE OF PROCEDURE: April 09, 2023 DATE H&P PERFORMED: 04/04/23 H&P UPDATE INFORMATION: I have reviewed H&P completed within last 30 days, I have examined patient prior to procedure and No changes to prior documentation PREOP DIAGNOSIS: Lumbar stenosis with neurogenic claudication PLANNED PROCEDURE: Operation Date: 04/09/23 12:40 Proposed Procedures p Lumbar Spine Decompression Lumbar Decompression/ standing on right side(Bilateral) - Tone Grier DO
[2023-04-09] MEDS: ceFAZolin 2,000 MG in sodium chloride 0.9% (plus) 50 ML 100 MG IV (14:26)
[2023-04-09] MEDS: lidocaine-epi 1% 20 mL INJ INJECTION (15:33)
--- NOTE | 2023-04-09 16:01 | ANE.PACU2 ---
Inpatient post-anesthesia follow up: Airway intact: Yes Vital signs: Temperature 98.2 F Pulse Rate 101 Respiratory Rate 14 Blood Pressure 168/78 Pulse Oximetry 96 Oxygen Delivery Me thod Simple Mask Oxygen Flow Rate 8 Fraction of Inspir ed Oxygen Hydration adequate: Yes Nausea and vomiting: No Pain level: 3 Mental status: Altered (sedated)
[2023-04-09] MEDS: ondansetron 2 mg/ML SDV 2 mL 4 MG IVP ×2 (16:23→16:37)
--- NOTE | 2023-04-09 16:43 | PC.NURSE ---
Addendum entered by Janessa Cerna RN 04/09/23 16:45: note was recorded as 1535 in error - correct time was 1635 Original Note: 1535 - pt reports no further nausea - will transfer to phase 2 - upon arrival to phase 2 pt became nauseated - 4mg zofran given IVP per this nurse in phase 2
[2023-04-09] MEDS: metoclopramide 5 mg/mL SDV 2 mL 10 MG IVP (17:10)
--- NOTE | 2023-04-09 17:49 | SUR.PHASEII ---
1640 pt received from PACU and c/o nausea,4mg Zofran given per nhungpacu nurse.,pt states nausea better after 10-15 min. 1715 sipping on sprite and eating crackers.1730 pt vomited large amt of greenish bile,2nd back of iv fluid started,iv benadryl refused. 1740 report given to IrmaRN
--- NOTE | 2023-04-09 18:18 | PC.NURSE ---
Patient able to take sips without vomiting, scopolamine patch behind right ear, patient IV removed from right a/c iv cath. intact, patient states she is feeling 99% better.
[2023-04-09] MEDS: scopolamine 1.5 Patch 1 PATCH TRANSDERMA (18:20)
--- NOTE | 2023-04-10 16:30 | PM.OP ---
Operative Report Date of procedure: April 09, 2023 Pre-op diagnosis: Lumbar stenosis with neurogenic claudication Post-op diagnosis: same Procedure done: L4-5 laminectomy with partial facetectomy Surgeon: Tone Grier DO Estimated blood loss (mL): 5 Procedure: L4-5 laminectomy with partial facetectomy Patient is brought to the operative suite. After undergoing anesthesia they are placed in the prone position. All areas of impingement are well padded. Patient is then prepped and draped in the normal sterile fashion. A skin incision is made over the L4-5 level. This is confirmed under c-arm guidance. A series of dilators are passed and the tubular retractor is docked on the L4 lamina. A bovie is used to clear the soft tissue off the lamina and the L 4/5 facet joint. A high speed tim is then used to perform the laminectomy and take down the medial aspect of the L 4/5 facet joint. A kerrison rongeure was then used to take down the remaining lamina and smooth the edge of the laminectomy up to the point where the ligamentum flavum attaches. Attention was then brought to the medial aspect of the facet joint. The remaining medial aspect of the superior and inferior aspect of the facet joint were taken down with the kerrison from the pedicle of L4 to L 5. The facet joint had significant hypertrophy. Attention was then brought to the Ligamentum Flavum. The ligament was taken down from the lamina of L4 to L5 and out medially to the remaining facet joint. The ligament was thick. The dura was then exposed. The dura was in good repair. The L4 nerve was then traced with a curette out the L4/5 foramen and found to be adequately decompressed. The L5 nerve was traced with a curette around the L5 pedicle. The lateral recess was opened with a kerrison helping to further decompress the L5 nerve. Wound is then irrigated copiously with saline and surgiflo is used to stop any bleeding. The tubular retractor is removed and the wound is closed with vicryl and monocryl suture. Glue is then used to protect the wound. A sterile dressing is then placed. Patient was then placed in the supine position and transferred to the PACU in stable condition.
== END 2023-04-09 16:28 | disposition home or self-care (01) ==
PROVIDERS: PCP Family Medicine; Visit Provider Orthopaedic Surgery
PROC: (CPT 63005; principal; 2023-04-09 12:30)
DX: M48.062 Spinal stenosis, lumbar region with neurogenic claudication (principal); J44.9 Chronic obstructive pulmonary disease, unspecified; G47.30 Sleep apnea, unspecified; I10 Essential (primary) hypertension; Z86.19 Personal history of other infectious and parasitic diseases; Z87.891 Personal history of nicotine dependence
CPT/HCPCS: 63047; 72100; 76000; J0690; J1100; J1170; J1200; J2371; J2405; J2704; J2710; J2765; J3490; J7030

== ENCOUNTER → 2023-04-29 10:53 | Outpatient (BNVA) | payer MEDICARE, SELFPAY | PROVIDERS: PCP Family Medicine; Visit Provider Orthopaedic Surgery | DX: Z98.890 Other specified postprocedural states (principal) | CPT/HCPCS: 99024 ==

== ENCOUNTER → 2023-05-22 09:38 | Outpatient (BNVA) | payer MEDICARE, SELFPAY | PROVIDERS: PCP Family Medicine; Visit Provider Family Medicine | DX: I10 Essential (primary) hypertension (principal); J44.9 Chronic obstructive pulmonary disease, unspecified; R31.9 Hematuria, unspecified; J41.0 Simple chronic bronchitis; R31.21 Asymptomatic microscopic hematuria; R91.8 Other nonspecific abnormal finding of lung field; I73.9 Peripheral vascular disease, unspecified; Z79.899 Other long term (current) drug therapy | CPT/HCPCS: 81003; 87086 ==

== ENCOUNTER → 2023-06-03 10:56 | Outpatient (BNVA) | payer MEDICARE, SELFPAY | PROVIDERS: PCP Family Medicine; Visit Provider Orthopaedic Surgery | DX: Z98.890 Other specified postprocedural states (principal) | CPT/HCPCS: 99024 ==

== ENCOUNTER → 2023-06-11 10:36 | Outpatient (BNVA) | payer MEDICARE, SELFPAY | PROVIDERS: Visit Provider Nurse Practitioner Family | DX: H61.033 Chondritis of external ear, bilateral (principal); L82.1 Other seborrheic keratosis; L57.8 Other skin changes due to chronic exposure to nonionizing radiation; L81.4 Other melanin hyperpigmentation; D22.4 Melanocytic nevi of scalp and neck; L84 Corns and callosities | CPT/HCPCS: 99213 ==

== ENCOUNTER 2023-06-18 06:00 | Outpatient (RCR) | payer MEDICARE, SELFPAY | END 2023-07-11 23:59 | disposition home or self-care (01) | LOC: MPT 06:00 | PROVIDERS: Visit Provider Orthopaedic Surgery | DX: Z47.89 Encounter for other orthopedic aftercare (principal) | CPT/HCPCS: 97110; 97162; G0283 ==

== ENCOUNTER 2023-07-12 06:00 | Outpatient (RCR) | payer MEDICARE, SELFPAY | END 2023-07-24 23:59 | disposition home or self-care (01) | LOC: MPT 06:00 | PROVIDERS: PCP Family Medicine; Visit Provider Orthopaedic Surgery | DX: Z47.89 Encounter for other orthopedic aftercare (principal) | CPT/HCPCS: 97110; 97530; G0283 ==

== ENCOUNTER → 2023-07-15 10:08 | Outpatient (BNVA) | payer MEDICARE, SELFPAY | PROVIDERS: PCP Family Medicine; Visit Provider Orthopaedic Surgery | DX: Z98.890 Other specified postprocedural states | CPT/HCPCS: 99024 ==

== ENCOUNTER → 2023-07-24 13:16 | Outpatient (BNVA) | payer MEDICARE, SELFPAY | PROVIDERS: PCP Family Medicine; Visit Provider Family Medicine | DX: M25.512 Pain in left shoulder (principal); M25.511 Pain in right shoulder | CPT/HCPCS: 73030 ==

== ENCOUNTER → 2023-07-28 12:26 | Outpatient (BNVA) | payer MEDICARE, SELFPAY | PROVIDERS: PCP Family Medicine; Visit Provider Internal Medicine Cardiovascular Disease | DX: I10 Essential (primary) hypertension (principal); I47.19 Other supraventricular tachycardia; Z87.891 Personal history of nicotine dependence | CPT/HCPCS: 99214 ==

== ENCOUNTER 2023-09-16 09:56 | Outpatient (CLI) | payer MEDICARE, SELFPAY ==
--- NOTE | 2023-09-16 10:01 | CT_ITS ---
WS: [id number] CT RIGHT SHOULDER, NONCONTRAST, 3D. HISTORY: FAILED TOTAL JOINT REPLACEMENT, PAINFUL HARDWARE Technique: All [facility] scans at [facility] use at least one of these dose optimization techniques: automated exposure control; mA and/or kV adjustment per patient size (includes targeted exams where dose is matched to clinical indication); or iterative reconstruction. DLP: 258.30 mGy.cm COMPARISON: Radiograph 07/24/2023. Status post RIGHT shoulder replacement. Arthroplasty stem extends into the mid humeral diaphysis. No obvious lucency surrounding the stem by CT. There is a mock line present but this is an artifact. [employer] rowing of the glenohumeral joint. Mild osteopenia. There is slight superior elevation of the humeral head prosthesis with respect to the glenoid. No acute fractures. No soft tissue abnormalities. The visualized lung is clear. There is a perifissural nodule. CT/CT shoulder RT wo con* [id number] IMPRESSION: 1. Status post RIGHT shoulder replacement. Long arthroplasty stem extends into the mid humerus. 2. No definite loosening or fractures are identified. 3. Humeral head is slightly high riding from the glenoid.
--- NOTE | 2023-09-16 10:01 | CT_ITS ---
WS: [id number] CT LEFT SHOULDER, NONCONTRAST, 3D HISTORY: FAILED TOTAL JOINT REPLACEMENT, PAINFUL HARDWARE Technique: All CT scans at [facility] use at least one of these dose optimization techniques: automated exposure control; mA and/or kV adjustment per patient size (includes targeted exams where dose is matched to clinical indication); or iterative reconstruction. DLP: 279.19 mGy.cm COMPARISON: Radiograph 07/24/2023 Long humeral arthroplasty stem extends into the mid humerus. There is no loosening or fracture. Mild narrowing of the glenohumeral joint. The humeral head prosthesis is slightly high riding demonstrates mild subluxation. There may be slight contact on the posterior glenoid by the humeral prosthesis. Mi ld AC joint arthritis. No acute fracture. CT/CT shoulder LT wo con* [id number] IMPRESSION: 1. Status post LEFT humeral head prosthesis with long arthroplasty stem. 2. No fracture or loosening identified. 3. High riding humeral head prosthesis.
== END 2023-09-16 09:57 | disposition home or self-care (01) ==
LOC: RAD 09:57
PROVIDERS: PCP Family Medicine; Visit Provider Orthopaedic Surgery
DX: T84.018A Broken internal joint prosthesis, other site, initial encounter (principal); T84.84XA Pain due to internal orthopedic prosthetic devices, implants and grafts, initial encounter
CPT/HCPCS: 73200

== ENCOUNTER → 2023-11-25 10:29 | Outpatient (BNVA) | payer MEDICARE, SELFPAY | PROVIDERS: PCP Family Medicine; Visit Provider Family Medicine | DX: I10 Essential (primary) hypertension (principal); E11.9 Type 2 diabetes mellitus without complications; R79.89 Other specified abnormal findings of blood chemistry; E55.9 Vitamin D deficiency, unspecified | CPT/HCPCS: 80053; 80061; 82310; 82652; 83036; 83970 ==

== ENCOUNTER 2023-12-17 13:19 | Outpatient (CLI) | payer MEDICARE, SELFPAY ==
--- NOTE | 2023-12-17 13:30 | CT_ITS ---
WS: [id number] LDCT LUNG CANCER SCREENING TECHNIQUE: Noncontrast CT of the chest with coronal and sagittal reformatted images. CLINICAL INFORMATION: F17.210 - Nicotine dependence, cigarettes, uncomplicated COMPARISON: 12/11/2022 DLP: 58.11 mGy.cm DIvol: Mean CTDIvol: 1.10 (mGy) All CT scans at [facility] use at least one of these dose optimization techniques: automat ed exposure control; mA and/or kV adjustment per patient size (includes targeted exams where dose is matched to clinical indication); or iterative reconstruction. FINDINGS: No suspicious pulmonary parenchymal abnormalities. Aortic calcification. Coronary calcification. No mediastinal or hilar lymphadenopathy. No axillary ly mphadenopathy. Cholecystectomy. Small esophageal hiatal hernia. Adrenal glands are normal. Prior postoperative dobbins es bilateral total shoulder arthroplasties. Mild thoracic kyphosis. Hypertrophic changes thoracic spi ne. CT/CT lung screening [id number] IMPRESSION: LUNG-RADS: 1-Negative FOLLOW UP: 12 Month: Continue annual screening with LDCT
== END 2023-12-17 13:20 | disposition home or self-care (01) ==
PROVIDERS: PCP Family Medicine; Visit Provider Family Medicine
DX: Z12.2 Encounter for screening for malignant neoplasm of respiratory organs (principal); F17.210 Nicotine dependence, cigarettes, uncomplicated; I70.0 Atherosclerosis of aorta; I25.84 Coronary atherosclerosis due to calcified coronary lesion; Z90.49 Acquired absence of other specified parts of digestive tract; K44.9 Diaphragmatic hernia without obstruction or gangrene; Z96.611 Presence of right artificial shoulder joint; Z96.612 Presence of left artificial shoulder joint
CPT/HCPCS: 71271

== ENCOUNTER 2023-12-30 11:26 | Outpatient (CLI) | payer MEDICARE, SELFPAY ==
--- NOTE | 2023-12-30 11:33 | XR_ITS ---
WS: [id number] Exam: XR shoulder RT min 2V* [id number] Date/Time of Exam: 12/30/2023 11:44 AM Reason For Exam: STATUS POST REVERSE TOTAL ARTHROPLASTY OF R SHOULDER Comparison 07/24/2023. Reverse RIGHT shoulder prosthesis is in place in satisfactory position. Soft tissues are unremarkable . XR/XR shoulder RT min 2V* [id number] IMPRESSION: 1. RIGHT reverse shoulder prosthesis in satisfactory position.
== END 2023-12-30 11:27 | disposition home or self-care (01) ==
LOC: RAD 11:28
PROVIDERS: PCP Family Medicine; Visit Provider Orthopaedic Surgery
DX: Z96.611 Presence of right artificial shoulder joint (principal)
CPT/HCPCS: 73030

== ENCOUNTER 2024-01-16 12:45 | Outpatient (CLI) | payer MEDICARE, SELFPAY ==
--- NOTE | 2024-01-16 13:00 | XR_ITS ---
WS: [id number] DEXA (DUAL ENERGY X-RAY ABSORPTIOMETRY) Bone mineral density was performed using a [employer] machine. HISTORY: M81.0 - Age-related osteoporosis without current patholog... COMPARISON: 01/14/2022 Left forearm BMD: 0.540 g/cm2. T score: -3.8 Z score: -2.5 RIGHT forearm BMD: 0.533 g/cm2. T score: -3.7 Z score: -2.3 Prior spinal fusion and hip replacement hardware. XR/XR DEXA axial skeleton* [id number] IMPRESSION: OSTEOPOROSIS based upon the WHO classification for females.
--- NOTE | 2024-01-16 13:42 | US_ITS ---
WS: [id number] THYROID ULTRASOUND HISTORY: THYROID NODULE COMPARISON: 08/31/2021 Right lobe: 1.3 cm x 1.2 cm x 4.3 cm (w x ap x l). Volume: 3.2 cm3. Normal sized thyroid. There are few scattered colloid cysts within the thyroid. Left lobe: 1.4 cm x 0.7 cm x 3.1 cm (w x ap x l). Volume: 1.4 cm3. Small caliber gland. No mass or nodule identified. Isthmus: 0.2 cm. Hypoechoic area in the RIGHT isthmus measures 0.9 x 0.5 x 0.9 cm. No echogenic foci. This nodule is nearly isoechoic to the adjacent gland. US/US thyroid [id number] IMPRESSION: 1. TI-RADS 3; due to the appearance of the RIGHT isthmus nodule no imaging fol low-up is recommended as by the TI-RADS criteria. 2. Small colloid cysts RIGHT thyroid.
== END 2024-01-16 12:46 | disposition home or self-care (01) ==
LOC: RAD 12:46
PROVIDERS: PCP Family Medicine; Visit Provider Family Medicine
DX: Z13.820 Encounter for screening for osteoporosis (principal); M81.0 Age-related osteoporosis without current pathological fracture; E04.1 Nontoxic single thyroid nodule
CPT/HCPCS: 76536; 77080

== ENCOUNTER → 2024-01-26 10:32 | Outpatient (BNVA) | payer MEDICARE, SELFPAY | PROVIDERS: PCP Family Medicine; Visit Provider Nurse Practitioner Family | DX: I73.9 Peripheral vascular disease, unspecified (principal); I10 Essential (primary) hypertension; E78.5 Hyperlipidemia, unspecified; I47.10 Supraventricular tachycardia, unspecified; J44.9 Chronic obstructive pulmonary disease, unspecified; F17.200 Nicotine dependence, unspecified, uncomplicated | CPT/HCPCS: 99214 ==

== ENCOUNTER → 2024-02-10 09:57 | Outpatient (BNVA) | payer MEDICARE, SELFPAY | PROVIDERS: PCP Family Medicine; Visit Provider Nurse Practitioner | DX: R10.9 Unspecified abdominal pain (principal) | CPT/HCPCS: 81000; 87086 ==

== ENCOUNTER → 2024-02-12 13:22 | Outpatient (BNVA) | payer MEDICARE, SELFPAY | PROVIDERS: PCP Family Medicine; Referring Provider Family Medicine; Visit Provider Internal Medicine | DX: M81.0 Age-related osteoporosis without current pathological fracture (principal); R79.89 Other specified abnormal findings of blood chemistry; E04.1 Nontoxic single thyroid nodule; Z90.710 Acquired absence of both cervix and uterus | CPT/HCPCS: 99204 ==

== ENCOUNTER → 2024-02-18 11:07 | Outpatient (BNVA) | payer MEDICARE, SELFPAY | PROVIDERS: PCP Family Medicine; Visit Provider Podiatrist Foot & Ankle Surgery | DX: B35.1 Tinea unguium; L84 Corns and callosities | CPT/HCPCS: 99213 ==

== ENCOUNTER → 2024-03-03 10:44 | Outpatient (BNVA) | payer MEDICARE, SELFPAY | PROVIDERS: PCP Family Medicine; Visit Provider Podiatrist Foot & Ankle Surgery | DX: B35.1 Tinea unguium; L84 Corns and callosities; M79.671 Pain in right foot | CPT/HCPCS: 99213 ==

== ENCOUNTER → 2024-04-07 10:07 | Outpatient (BNVA) | payer MEDICARE, SELFPAY | PROVIDERS: PCP Family Medicine; Visit Provider Podiatrist Foot & Ankle Surgery | DX: B35.1 Tinea unguium (principal); L84 Corns and callosities; M79.671 Pain in right foot | CPT/HCPCS: 99213 ==

== ENCOUNTER → 2024-05-04 09:17 | Outpatient (BNVA) | payer MEDICARE, SELFPAY | PROVIDERS: PCP Family Medicine; Referring Provider Family Medicine; Visit Provider Family Medicine | DX: R73.03 Prediabetes (principal); I10 Essential (primary) hypertension | CPT/HCPCS: 80053; 80061; 83036 ==

== ENCOUNTER → 2024-07-28 09:34 | Outpatient (BNVA) | payer MEDICARE, SELFPAY | PROVIDERS: PCP Family Medicine; Visit Provider Internal Medicine | DX: M81.0 Age-related osteoporosis without current pathological fracture (principal); R79.89 Other specified abnormal findings of blood chemistry; E04.1 Nontoxic single thyroid nodule | CPT/HCPCS: 36415; 80053; 82306; 82310; 83970; 99214 ==

== ENCOUNTER → 2024-08-10 14:08 | Outpatient (BNVA) | payer MEDICARE, SELFPAY | PROVIDERS: PCP Family Medicine; Visit Provider Internal Medicine Cardiovascular Disease | DX: I10 Essential (primary) hypertension (principal); I47.20 Ventricular tachycardia, unspecified; I73.9 Peripheral vascular disease, unspecified; Z96.619 Presence of unspecified artificial shoulder joint; F17.200 Nicotine dependence, unspecified, uncomplicated | CPT/HCPCS: 99214 ==

== ENCOUNTER → 2024-10-06 10:14 | Outpatient (BNVA) | payer MEDICARE, SELFPAY | PROVIDERS: PCP Family Medicine; Referring Provider Internal Medicine; Visit Provider Internal Medicine | DX: K86.81 Exocrine pancreatic insufficiency (principal); R79.89 Other specified abnormal findings of blood chemistry | CPT/HCPCS: 82306 ==

== ENCOUNTER 2024-10-18 11:11 | Outpatient (CLI) | payer MEDICARE, SELFPAY ==
--- NOTE | 2024-10-18 11:20 | MM_ITS ---
WS: [id number] Bilateral screening 3D tomosynthesis digital mammogram, 10/18/2024 11:20 AM Clinical Data: Z12.39 - Encounter for other screening for malignant neop... Comparison: 04/12/2022, 02/18/2021, 01/31/2020, 11/24/2017, 11/15/2016, 09/20/2014, 03/02/2012, 09/21/2010, 08/07/2007, 08/04/2006. Findings: No spiculated masses or clustered calcifications are seen. There are no secondary signs of carcinoma. MM/MM scr BI tomosynthesis [id number] Impression: Negative bilateral mammogram unchanged. Recommend annual screening mammograms. BIRADS: 1 - Negative. FOLLOW UP: 1 Year Follow-up DENSITY: There are scattered areas of fibroglandular density. The CAD jukebox checker was used
== END 2024-10-18 11:12 | disposition home or self-care (01) ==
LOC: RAD 11:12
PROVIDERS: PCP Family Medicine; Visit Provider Family Medicine
DX: Z12.31 Encounter for screening mammogram for malignant neoplasm of breast (principal); R92.323 Mammographic fibroglandular density, bilateral breasts
CPT/HCPCS: 77063; 77067

== ENCOUNTER → 2024-10-21 09:06 | Outpatient (BNVA) | payer MEDICARE, SELFPAY | PROVIDERS: PCP Family Medicine; Visit Provider Nurse Practitioner Family | DX: L30.0 Nummular dermatitis (principal); H61.033 Chondritis of external ear, bilateral; L82.1 Other seborrheic keratosis; L81.4 Other melanin hyperpigmentation; L57.8 Other skin changes due to chronic exposure to nonionizing radiation; D22.5 Melanocytic nevi of trunk | CPT/HCPCS: 99214 ==

== ENCOUNTER 2024-11-15 10:30 | Oncology outpatient (recurring) (ONCR) | payer MEDICARE, SELFPAY ==
[2024-11-15] MEDS: denosumab 60 mg SDV (Infusion Clinic Only) SUBCUT (11:12)
[2024-11-15 11:15] VITALS: BP 115/71; PULSE 67
== END 2024-12-10 23:59 | disposition home or self-care (01) ==
PROVIDERS: PCP Family Medicine; Visit Provider Internal Medicine
DX: M81.0 Age-related osteoporosis without current pathological fracture (principal); Z79.899 Other long term (current) drug therapy
CPT/HCPCS: 96372; J0897

== ENCOUNTER → 2025-01-18 10:05 | Outpatient (BNVA) | payer MEDICARE, SELFPAY | PROVIDERS: PCP Family Medicine; Visit Provider Internal Medicine | DX: M81.0 Age-related osteoporosis without current pathological fracture (principal); Z90.710 Acquired absence of both cervix and uterus; R79.89 Other specified abnormal findings of blood chemistry; E04.1 Nontoxic single thyroid nodule | CPT/HCPCS: 80053; 82306; 82310; 83970 ==

== ENCOUNTER → 2025-01-31 09:58 | Outpatient (BNVA) | payer MEDICARE, SELFPAY | PROVIDERS: PCP Family Medicine; Visit Provider Internal Medicine Endocrinology, Diabetes & Metabolism | DX: M81.0 Age-related osteoporosis without current pathological fracture (principal); R79.89 Other specified abnormal findings of blood chemistry; E04.1 Nontoxic single thyroid nodule; Z90.710 Acquired absence of both cervix and uterus | CPT/HCPCS: 99213 ==

== ENCOUNTER 2025-02-06 10:25 | Emergency (ER) | payer MEDICARE, SELFPAY ==
--- OUTSIDE RECORDS SUMMARY | 2025-02-06 10:29 | XMS_ITS | Data Portability ---
Author Organization [facility]io Jane [facility] Address [address] [address] Assessment No assessment recorded. Plan of Treatment Reminders Order Date Submit Date Provider Last Modified By Organization Details Last Modified Time Details Appointments None recorded. Lab None recorded. Referral vascular surgeon referral 2022 023 [email or web address] 2 Not available 3 12:10:22 Procedures None recorded. Surgeries None recorded. Imaging US, duplex, arterial, lower extremity, complete 2022 023 [email or web address] 2 Not available 3 16:34:11 Medication Orders gabapentin 300 mg capsule 2022 023 [facility] [place], [address], 3 10:30:21 Patient TargetsNo targets recorded. Patient Instructions Encounter Date Encounter Id Patient Instructions Last Modified By Organization Details Last Modified Time 06/26/2022 [id number] trial of gabapentin. Not available 06/30/2022 11:57:39 07/29/2022 Unclear if this is claudication v neuropathy - but I suspect some combination of both (in addition to some osteoarthritis from prior injuries). Since she is resistant to taking medication, I recommend she consult with vascular surgery to get an opinion on if any surgical intervention would be of benefit. Not available 07/29/2022 11:33:24 Reason for Referral Vascular Surgeon Referral fo r Intermittent claudication Referring Physician: Monse Hartman, Family Medicine, Encounter Date: 07/29/2022 Results Created Date Observation Date Name Description Value Unit Range Abnormal Flag Note LastModifiedBy Organization Detail LastModifiedTime 07/25/19 23 07/24/2022 US, duple x, arter ial, lower extre mity, compl ete No observ ation record ed. [email or web address] [facility] [address] [place], [address], 07/30/2022 18:58:30 Result Notes None recorded. Problems Name Problem SNOMED Code Status Onset Date Resolution Date Notes Provider Name and Address Organization Details Recorded Time Goiter 6439124 Active 2021 ENLARGED THYROID; per hx from Dr. Awad, 2016; 11/21/2021 10:39AM by Haider Anderson LPN, Office Visit; Promoted; acuity set as *; Not Available [facility] 3 03:16:19 Type 2 diabetes mellitus without complicat ion 099690627 Active 2021 Diabetes Mellitus, Type II; 11/21/2021 10:39AM by Haider Anderson LPN, Office Visit; Promoted; acuity set as *; Not Available [facility] 3 03:16:19 Spinal stenosis 30131853 Active 2021 Spinal Stenosis; 11/21/2021 10:39AM by Haider Anderson LPN, Office Visit; Promoted; acuity set as *; Not Available [facility] 3 03:16:20 Non-toxic uninodula r goiter 927507612 Active 2021 RIGHT THYROID NODULE; Story: per hx from Dr. Awad, 2016; Recorded 11/21/2021 10:39AM by Haider Anderson LPN, Office Visit; Promoted; acuity set as *; Not Available [facility] 3 03:16:22 Hypersomn ia 79901872 Active 2021 HYPERSOMNI A; from med hx Dr. Malcolm; 11/21/2021 10:39AM by Haider Anderson LPN, Office Visit; Promoted; acuity set as *; Not Available [facility] 3 03:16:22 Anxiety 58511401 Active 2021 ANXIETY; per hx from Dr. Awad, 2016; 11/21/2021 10:39AM by Haider Anderson LPN, Office Visit; Promoted; acuity set as *; Not Available [facility] 3 03:16:25 Kidney disease 08335385 Active 2021 Kidney Disease; 11/21/2021 10:39AM by Haider Anderson LPN, Office Visit; Promoted; acuity set as *; Not Available [facility] 3 03:16:25 Osteoporo sis 20237051 Active 2021 Osteoporos is; 11/21/2021 10:39AM by Haider Anderson LPN, Office Visit; Promoted; acuity set as *; Not Available [facility] 3 03:16:25 History of polyp of colon 193188577 Active 2021 HISTORY OF COLON POLYPS; per hx from Dr. Awad, 2016; 11/21/2021 10:39AM by Haider Anderson LPN, Office Visit; Promoted; acuity set as *; Not Available [facility] 3 03:16:25 Obstructi ve sleep apnea syndrome 75261140 Active 2021 OBSTRUCTIV E SLEEP APNEA; per hx from Dr. Awad, 2016; 11/21/2021 10:39AM by Haider Anderson LPN, Office Visit; Promoted; acuity set as *; Not Available [facility] 3 03:16:29 Chronic obstructi ve pulmonary disease 84285418 Active 2021 COPD; Recorded 11/21/2021 10:39AM by Haider Anderson LPN, Office Visit; Promoted; acuity set as *; Not Available [facility] 3 03:16:31 Viral hepatitis C 69437347 Active 2021 Hepatitis C; Per Medical Records sent by Dr. Awad 2016; 11/21/2021 10:39AM by Haider Anderson LPN, Office Visit; Promoted; acuity set as *; Not Available [facility] 3 03:16:33 Problem Notes None recorded. Medical Equipment None Reported. Allergies Allergen ID Allergen Name Allergen Category Reaction Reaction Severity Criticality Documentation Date Start Date Code Code System Note Provider Name and Address Organization Details Recorded Time 3146 Substance with sulfonami de structure and antibacte rial mechanism of action (substanc e) medicatio n rash Not available Not available 06/26/2022 65301 8003 [facility] 09:57:04 3147 Imitrex medicatio n rash Not available Not available 06/26/2022 63023 3 RxNorm HAIDER APOLINAR sy [facility] 3 09:57:14 56002 Imitrex medicatio n Not available Not available Not available 09/07/2022 15712 3 RxNorm Comme nt: Recor ded 11/21 10:39 AM by Haider chan LPN, Offic e Visit ; Promo chinedu; Signi fican ce: *; Reaso n: Drug aller gy; ; Not Available [facility] 3 02:24:07 36620 Ultram medicatio n Not available Not available Not available 09/07/2022 91360 6 RxNorm Comme nt: Recor ded 11/21 10:39 AM by Haider chan LPN, Offic e Visit ; Promo chinedu; Signi roya ce: *; Reaso n: Drug aller gy; ; Not Available [facility] 3 02:24:07 Medications Name Sig Start Date Stop Date Status Note LastModified by Organization Details LastModified Time azithromyci n 250 mg tablet TAKE 2 TABLETS BY MOUTH ON DAY 1, AND THEN TAKE 1 TABLET BY MOUTH ONCE A DAY ON DAY 2 THROUGH DAY 5 06/26 completed Not Available Not Available Not Available cilostazol 50 mg tablet TAKE 1 TABLET BY MOUTH TWICE DAILY active Not Available Not Available No t Available simvastatin 10 mg tablet TAKE 1 TABLET BY MOUTH ONCE DAILY active Not Available Not Available No t Available oseltamivir 75 mg capsule TAKE 1 CAPSULE BY MOUTH TWICE DAILY FOR 5 DAYS 06/26 completed Not Available Not Available Not Available gabapentin 300 mg capsule 1 tab po qhs for 3 nights then 2 tabs po qhs 2022 active Not Available Not Available Not Avai lable folic acid 1 mg tablet TAKE 1 TABLET BY MOUTH ONCE DAILY 06/26 completed Not Available Not Available Not Available levofloxaci n 750 mg tablet TAKE 1 TABLET BY MOUTH ONCE DAILY FOR 7 DAYS 06/26 completed Not Available Not Available Not Available albuterol sulfate HFA 90 mcg/actuati on aerosol inhaler INHALE 2 PUFFS BY MOUTH EVERY 6 HOURS NEEDED FOR SHORTNESS OF BREATH OR WHEEZING active Not Available Not Available No t Available colestipol 1 gram tablet TAKE 1 TABLET BY MOUTH TWICE DAILY 06/26 completed Not Available Not Available Not Available amoxicillin 875 mg-potassiu m clavulanate 125 mg tablet TAKE 1 TABLET BY MOUTH TWICE DAILY 06/26 completed Not Available Not Available Not Available valsartan 160 mg-hydrochl orothiazide 25 mg tablet TAKE 1 TABLET BY MOUTH ONCE DAILY active Not Available Not Available No t Available metoprolol tartrate 25 mg tablet TAKE 2 TABLETS BY MOUTH DIRECTED IN THE MORNING AND 1 IN THE EVENING active Not Available Not Available No t Available Symbicort 160 mcg-4.5 mcg/actuati on HFA aerosol inhaler INHALE 2 PUFFS BY MOUTH TWICE DAILY 06/26 completed Not Available Not Available Not Available cholecalcif sudhakar (vitamin D3) 1,250 mcg (50,000 unit) capsule TAKE 1 CAPSULE BY MOUTH ONCE A WEEK 06/26 completed Not Available Not Available Not Available Creon 6,000-19,00 0-30,000 unit capsule,del ayed release TAKE 1 CAPSULE BY MOUTH BEFORE MEAL(S) 06/26 completed Not Available Not Available Not Available Creon 36,000 unit-114,00 0 unit-180,00 0 unit capsule,del ayed release TAKE 1 CAPSULE BY MOUTH THREE TIMES DAILY WITH MEALS AND/OR SNACKS 06/26 completed Not Available Not Available Not Available Anoro Ellipta 62.5 mcg-25 mcg/actuati on powder for inhalation INHALE 1 PUFF BY MOUTH ONCE DAILY active Not Available Not Available No t Available Trelegy Ellipta 100 mcg-62.5 mcg-25 mcg powder for inhalation INHALE 1 PUFF ONCE DAILY active Not Available Not Available No t Available Vitals Date Recorded Body height Body mass index (BMI) Body weight Body temperature Oxygen saturation Heart rate Systolic And Diastolic Provider Name and Address Organization Details Last Updated DateTime 3 160.02 cm 27.1 kg/m2 92442.6 3 g 98.5 [degF] 92 % 61 /min 115/80 mm[Hg] HAIDER ANDERSON [facility] 3 09:56:09 Date Recorded Body height Body mass index (BMI) Body weight Oxygen saturation Heart rate Body temperature Systolic And Diastolic Provider Name and Address Organization Details Last Updated DateTime 3 160.02 cm 26.6 kg/m2 52415.8 6 g 93 % 68 /min 98.2 [degF] 120/70 mm[Hg] HAIDER ANDERSON [facility] 3 10:49:25 Social History None recorded. Functional Status None recorded. Mental Status None recorded. Family History Nothing Reported Notes:Family history unknown - Adopted Medical History Condition Response COPD Y Hypertension Y Gynecological HistoryNo gynecological history recorded. Obstetrics History GPAL:G 0 P 0 0 0 0 Immunizations Vaccine Type Date Status Note Provider Nam e and Address Organization Details Recorded Time COVID-19, mRNA, LNP-S, PF, 100 mcg/0.5mL dose or 50 mcg/0.25mL dose 1 completed HAIDER sy [facility] 07/29/2022 10:49:46 COVID-19, mRNA, LNP-S, PF, 100 mcg/0.5mL dose or 50 mcg/0.25mL dose 1 completed HAIDER sy [facility] 07/29/2022 10:49:46 COVID-19, mRNA, LNP-S, PF, 100 mcg/0.5mL dose or 50 mcg/0.25mL dose 1 completed HAIDER sy [facility] 07/29/2022 10:49:46 Pneumococcal conjugate PCV20, polysaccharide ECY744 conjugate, adjuvant, PF 2 completed HAIDER sy [facility] 07/29/2022 10:49:46 pneumococcal polysaccharide PPV23 8 completed HAIDER sy, [facility] 07/29/2022 10:49:46 Influenza, split virus, quadrivalent, PF 2 completed HAIDER sy, [facility] 07/29/2022 10:49:46 Influenza, split virus, trivalent, preservative 0 completed Not Available [facility] 09/07/2022 02:51:50 Influenza, split virus, trivalent, preservative 8 completed Not Available [facility] 09/07/2022 02:51:50 Pneumococcal conjugate PCV 13 8 completed Not Available [facility] 09/07/2022 02:51:50 Influenza, split virus, trivalent, preservative 7 completed Not Available [facility] 09/07/2022 02:51:50 Past Encounters Encounter ID Performer Location Encounter Start Date Encounter Closed Date Diagnosis/Indication Diagnosis SNOMED-CT Code Diagnosis ICD10 Code Diagnosis IMO Codes Diagnosis Note [id number] Monse Hartman MD [facility] ([facility] [address] [place] [phone] 06/26/2022 09:44:23 07/03/2022 16:18:38 Essential hypertension 67422403 I10 controlled Neuropathy 424548343 G62 .9 She has some symptoms concerning for claudicati on - walking makes her legs/muscl es hurt. Monse Hartman MD [facility] ([facility]) [address] [place] [address] 07/29/2022 10:42:33 07/29/2022 11:54:19 Intermittent claudication 11254465 I73.9 Bilateral peripheral neuropathy of lower limbs 6006777013 9863698 G62.9 Health Concerns Section Related Observation LastModified by Organization Detai ls LastModified Time None Recorded Concern Status LastModified by Organization Details LastModified Time None Recorded Advance Directives Directive None Recorded Payers Insurance Date Sequence Insurance Name Policy Number Policy Sarah Covered Member ID Sarah Member ID Guarantor Name 08/08/2022 1 [place]/ [place]ANTAGE - PPO) [id number] Dina Fair [id number] Dina Fair Notes Date Note Type Note Provider Name and Address Organization Details Recorded Time 06/26/2022 text/html Hypertension IM/FMReported by PatientHPIFor associated symptoms, patient reportsfatiguebut reportsno headaches. For quality, patient reportshere for check-up. For severity, patient reportsmoderate. For onset/timing, patient reportsgradual onset. For self care, patient reportsnon-smoker.ROS as noted in the HPI Foot pain - starts in the afternoon with sitting more, my lower legs and feet start burning, at night its so intense - keeps me awake for hours. just sitting up in bed relieves it a little bit, standing relieves itbottoms of my feet have been doing it for a very long timeshe was on amitryptiline for another reason and at the time it didnt help the feet either. I dont see pulm until end of Augusthas had bronchitis twice since the end month screen on the lung nodule not due until August Monse Hartman MD [address] [place] [address], [phone], [facility] 06/30/2022 11:57:52 07/29/2022 text/html Go over arterial u/s. She did not start the gabapentin. She really does not like chaka medication. She started an OTC supplement. It took a few weeks but she has noticed some improvement. When she is up and walking both legs just hurt all the way up and down (she rubs medial thighs and the lower half of her lower legs)When she is sitting in a chair at night or in bed her toes and feet can start burning. Monse Hartman MD [address] [place] [address], [phone], [facility] 07/29/2022 11:33:37 OBGyn Episode No OBEpisode recorded.
--- OUTSIDE RECORDS SUMMARY | 2025-02-06 10:30 | XMS_ITS | Patient Health Record ---
Author Organization [facility] Address [address] [place] [address] Care Team Providers Care Technology Officer Name Role Phone Monse Hartman MD Primary Care Provider Unavailabl e [facility] Unavailable Omar Malcolm MD Unavailable Unavaila ble Reason For Referral No Information Medications Medication SIG (Take, Route, Frequency, Duration) Notes Start Date End Date Status ProAir HFA Active Symbicort 160-4.5 MCG/ACT 2 puffs Inhala tion Twice a day Active Colestipol HCl 1 GM Take 2 tablets by [facility] once daily; Duration: 30 Active Creon 19475-[address] UNIT as directed Orally Active Dexilant 60 MG 1 capsule Orally Onc e a day Active Valsartan-hydroCHLOROthiaz miguel 160-25 MG 1 tablet Orally Once a day Active Plan Of Treatment Pending Test Test Name Order Date Endoscopic Retrograde Cholangiopancreato graphy (ERCP) 12/21/2020 Insurance Providers Payer Name Payer Address Payer Phone Subscriber Number Group Number Insured Name Patient Relationship to Insured Coverage Start Date Coverage End Date [employer] [address] [place] [address] [id number] Dina Fair Self - patient is the insured Medical (General) History Medical History History ICD Code Arthritis chronic obstructive pulmonary disease (C OPD) hypertension gastroesophageal reflux disease (GERD) diverticulosis Surgical History Surgery Date(Month/Year) hysterectomy hip replacement (B) l shoulder r shoulder cholecystectomy 1997 left knee replacement
[2025-02-06 10:36] VITALS: BP 125/67; PULSE 74; TEMP 37.4; O2SAT 99
[2025-02-06 12:05] LABS: Hematocrit 46.1 % (36-47); Hemoglobin 15.10 g/dL (11.27-16.99); Mean Corpuscular HGB Conc 32.8 g/dL (30-55); Mean Corpuscular Hemoglobin 33.6 pg (27-33); Mean Corpuscular Volume 102.4 fl (85-98); Nucleated Red Blood Cells % 0 %; Platelet Count 231 10^3/cmm (157-399); Red Blood Count 4.50 10^6/uL (3.85-5.65); White Blood Count 12.03 10^3/uL (3.29-11.43)
[2025-02-06 12:24] LABS: Alanine Aminotransferase 22 U/L (0-33); Albumin Level 4.3 g/dL (3.5-5.2); Alkaline Phosphatase 84 U/L (35-105); Aspartate Amino Transferase 16 U/L (0-32); Blood Urea Nitrogen 14 mg/dL (8-23); Calcium 9.9 mg/dL (8.5-10.5); Carbon Dioxide 27 mmol/L (22-29); Chloride 93 mmol/L (98-107); Creatinine Clr Calc Pharmacy 62.0714; Globulin 2.8 g/dL (1.3-4.6); Glucose 111 mg/dL (65-115); Lipase 15 U/L (13-60); Osmolality Calculated 281 mOsm/kg (285-295); Sodium 135 mmol/L (136-145); Total Protein 7.1 g/dL (6.6-8.7)
[2025-02-06 12:26] LABS: Anion Gap 19.1 (5-19); Potassium 4.1 mmol/L (3.5-5.1)
--- NOTE | 2025-02-06 13:10 | CTR_ITS ---
PROCEDURE INFORMATION: Exam: CT Abdomen And Pelvis With Contrast Exam date and time: 02/06/2025 1:28 PM Age: 64 years old Clinical indication: Abdominal pain; Localized; Lower; Prior surgery; Surgery date: 6+ months; Surgery type: Hyster, gb, appy, emil iliac stents, emil hips; Additional info: Abd pain TECHNIQUE: Imaging protocol: Computed tomography of the abdomen and pelvis with contrast. Radiation optimization: All CT scans at this facility use at least one of these dose optimization techniques: automated exposure control; mA and/or kV adjustment per patient size (includes targeted exams where dose is matched to clinical indication); or iterative reconstruction. Contrast material: OMNIPAQUE 350; Contrast volume: 100 ml; Contrast route: INTRAVENOUS (IV); COMPARISON: CT abdomen pelvis w con* [id number] 02/12/2021 2:11 PM RADIATION DOSE METRICS: Total DLP (mGy-cm): 422.7 FINDINGS: Lungs: Partially visualized lung bases are clear. Visualized chest includes: No abnormal findings. Liver: Liver demonstrates a mildly diffuse low attenuation consistent with fatty infiltration. There are again seen multiple hepatic cysts. The largest is seen in the left hepatic lobe measuring 2 cm. Gallbladder and biliary ducts: There has been a cholecystectomy. There is no intrahepatic or extrahepatic biliary ductal dilatation. Pancreas: Normal. No ductal dilation. Spleen: Normal. No splenomegaly. Adrenal glands: Normal. No mass. Kidneys and ureters: Normal. No hydronephrosis. Stomach and bowel: There is inflammatory change and fluid around the sigmoid colon with sigmoid diverticulosis. The findings are consistent with acute sigmoid diverticulitis. There is no diverticular abscess or localized perforation. Appendix: Appendix is not visualized and there may have been an appendectomy. Intraperitoneal space: Unremarkable. No free air. No significant fluid collection. Vasculature: There is aortoiliac atherosclerosis. There is a moderate stenosis of the distal right common iliac artery. No abdominal aortic aneurysm. Lymph nodes: Unremarkable. No enlarged lymph nodes. Urinary bladder: Unremarkable as visualized. Reproductive: Uterus has been removed. Bones/joints: There are bilateral total hip replacements. Soft tissues: Unremarkable. CT/CT abdomen pelvis w con* [id number] IMPRESSION: 1. Acute sigmoid diverticulitis. No diverticular abscess or localized perforation. 2. Hepatic cysts. 3. Mild hepatic steatosis.
--- NOTE | 2025-02-06 13:11 | ED_ITS ---
HPI - Abdominal Pain 2 General: Chief Complaint: Abdominal Pain Stated Complaint: abdominal pain Time Seen by Provider: 02/06/25 13:06 Source: patient Mode of arrival: ambulatory Limitations: no limitations History of Present Illness: 64-year-old female who states she been h aving lower abdominal pains been going on for 2 to 3 days states been sharp pain in her lower abdomen states she also had some nausea today denies any vomiting patient denies any fevers or diarrhea she denies any worse or improving factors rates her pain a 5 out of 10. Related Data Home Medications ?Medication ?Instructions ?Recorded ?Confirmed acetaminophen 650 mg 650 mg PO Q12H PRN Pain 01/1002/06/25 tablet,extended release (Tylenol 8 Hour) ascorbic acid (vitamin C) 1,000 mg 1,000 mg PO DAILY 0 07/30/22 02/06/25 tablet omega-3 fatty acids 1,000 mg 1,000 mg PO DAILY 3 02/06/25 capsule aspirin 81 mg tablet,delayed 81 mg PO DAILY 08/28/22 1 04/09/24 release (Adult Low Dose Aspirin) cholecalciferol (vitamin D3) 50 5,000 mcg PO DAILY 03/0602/06/25 mcg (2,000 unit) tablet (Vitamin D3) denosumab 60 mg/mL subcutaneous 60 mg SUBCUT .[id number] 02/06/25 02/06/25 syringe (Prolia) denosumab 60 mg/mL subcutaneous 60 mg SUBCUT .[id number] 02/06/25 02/06/25 syringe (Prolia) fluticasone fur. 100 mcg-umeclid 1 inh inhalation MARILIN Y 02/06/25 02/06/25 62.5 mcg-vilant 25 mcg inhalat.powder (Trelegy Ellipta) simvastatin 40 mg tablet 40 mg PO QAM 02/06/25 triamcinolone acetonide 0.1 % See Rx Instructions .Rou te .COMPLEX 02/06/25 02/06/25 topical cream Previous Rx's ?Medication ?Instructions ?Recorded cetirizine 10 mg capsule (Zyrtec) 10 mg PO DAILY PRN a llergy 05/04/21 symptoms #60 caps magnesium oxide 400 mg (241.3 mg 400 mg PO DAILY #90 t abs 07/28/23 magnesium) tablet albuterol sulfate 90 mcg/actuation 2 puff inhalation Q 6H PRN 10/13/24 aerosol inhaler Shortness Of Breath Or Wheez ing #8.5 grams dicyclomine 20 mg tablet 20 mg PO BID PRN abdominal p ain 10/13/24 #60 tabs metoprolol tartrate 50 mg tablet 50 mg PO BID #180 tab s 10/13/24 valsartan 160 1 tab PO DAILY 90 days #90 t abs 10/13/24 mg-hydrochlorothiazide 25 mg tablet ciprofloxacin HCl 500 mg tablet 500 mg PO BID #14 tabs 02/06/25 hydrocodone 5 mg-acetaminophen 325 1 tab PO Q8H PRN pa in #14 tabs 02/06/25 mg tablet metronidazole 500 mg tablet 500 mg PO Q8H 7 days #21 t abs 02/06/25 ondansetron 4 mg disintegrating 4 mg PO Q6H PRN nausea and 02/06/25 tablet vomiting #14 tabs Allergies Allergy/AdvReac Type Severity Reaction Status Date / Time Sulfa (Sulfonamide Allergy Severe hives Verified 02/06/25 10:43 Antibiotics) sumatriptan (From Imitrex) Allergy Severe hives Verified 02/06/25 10:43 Review of Systems 2 GI: Reports: abdominal pain PFSH ED 2 PFSH: Medical History Pulmonary nodules Hx of hepatitis C Hx acute, no chronic. Never had tx, viral load neg Prediabetes PAD (peripheral artery disease) Paroxysmal SVT (supraventricular tachycardia) COPD (chronic obstructive pulmonary disease) Osteoporosis Spinal stenosis FH: bilateral hip replacements Onychomycosis Surgical History History of surgery on lower extremity S/P bilateral hip replacements H/O abdominal hysterectomy History of left knee replacement History of replacement of both shoulder joints History of cholecystectomy Family History Other Adopted Social History Smoking and tobacco/nicotine status: current every day tobacco/nicotine user Quit status (tobacco/nicotine): has quit using Year quit tobacco: 2020 Former quit date comment: 1 ppd X 38 years Alcohol intake: current Alcohol intake frequency: 3 or more drinks per day Alcohol type: beer Substance/Drug Use: never Adopted: Yes Marital status: Number of children: 0 service: No Female Reproductive History: Spontaneous abortions: No Physical Exam 2 Const: COMMON NORMALS: no acute distress, patient oriented x3 and healthy appearing HENMT: COMMON NORMALS: normocephalic and atraumatic HEAD & SCALP: n ormocephalic and atraumatic Eye: COMMON NORMALS: Equal, round and reactive pupils present and EOMs intact bilaterally PUPIL: Yes Equal, round and reactive pupils present Neck/C-Spine: COMMON NORMALS: full ROM and supple Chest: COMMONS NORMALS: normal inspection of the chest and normal palpation of entire chest wall Resp: COMMON NORMALS: normal respiratory effort, No retractions, No use of accessory muscles and clear to auscultation bilaterally AUSCULTATION: clear to auscultation bilaterally Cardio: COMMON NORMALS: regular rate, regular rhythm and No murmurs present (Cardio) RATE: regular rate RHYTHM: regular rhythm GI: COMMON NORMALS: Normal to inspection, nondistended, normoactive bowel sounds present, Soft to palpation, non-tender and no masses PALPATION: Yes Soft to palpation Extremity: COMMON NORMALS: normal to inspection and full ROM Neuro: COMMON NORMALS: patient oriented x3, moves all extremities and no focal motor deficits Psych: COMMON NORMALS: mental status grossly normal, Normal thought process present and cooperative THOUGHT PROCESS: Normal thought process present Skin: COMMON NORMALS: no rashes or lesions noted and no wounds GENERAL SKIN EXAM: no rashes or lesions noted Course 2 Vital Signs: Vital signs: Vital Signs Temperature 99.3 F 02/06/25 10:36 Pulse Rate 74 02/06/25 10:36 Blood Pressure 125/67 02/06/25 10:36 Pulse Oximetry 99 02/06/25 10:36 Oxygen Delivery Me thod Room Air 02/06/25 10:36 MDM - Abdominal Pain Medical Decision Making Patient presents for lower abdominal pain differential includes appendicitis, diverticulitis acute cystitis. Patient's lab work showed no significant abnormality white count here is normal. She does have diverticulitis on her CT scan likely causing her pain and her pain here is improved I feel she is stable for discharge and outpatient treatment will prescribe her hydrocodone, Zofran, Cipro and Flagyl. I did go over all these findings with her she is stable for discharge return if worsening she understands agrees to plan. Medical Records I reviewed the patient's medical records. Lab Data I reviewed the patient's lab results. 02/06/25 11:45 02/06/25 11:45 Labs/Radiology: Radiology Impressions Abdomen/Pelvis CT 02/06/25 13:10 IMPRESSION: 1. Acute sigmoid diverticulitis. No diverticular abscess or localized perforation. 2. Hepatic cysts. 3. Mild hepatic steatosis. Laboratory Results WBC 12.03 10^3/uL (3.29-11.43) H 02/06/25 11:45 RBC 4.50 10^6/uL (3.85-5.65) 02/06/25 11:45 Hgb 15.10 g/dL (11.27-16.99) 02/06/25 11:45 Hct 46.1 % (36-47) 02/06/25 11:45 MCV 102.4 fl (85-98) H 02/06/25 11:45 MCH 33.6 pg (27-33) H 02/06/25 11:45 MCHC 32.8 g/dL (30-55) 02/06/25 11:45 RDW 12.9 % (12.1-15.1) 02/06/25 11:45 Plt Count 231 10^3/cmm (157-399) 02/06/25 11:45 MPV 10.8 fL (7.4-10.4) H 02/06/25 11:45 Neut % (Auto) 74.9 % 02/06/25 11:45 Lymph % (Auto) 14.8 % 02/06/25 11:45 [place] % (Auto) 9.8 % 02/06/25 11:45 Eos % (Auto) 0.1 % 02/06/25 11:45 Baso % (Auto) 0.2 % 02/06/25 11:45 Neut # (Auto) 9.00 10^3/uL (1.8-7.7) H 02/06/25 11:45 Lymph # (Auto) 1.8 10^3/uL (0.8-4.8) 02/06/25 11:45 [place] # (Auto) 1.2 10^3/uL (0.2-0.9) H 02/06/25 11:45 Eos # (Auto) 0.0 10^3/uL (0.0-0.8) 02/06/25 11:45 Baso # (Auto) 0.0 10^3/uL (0.0-0.1) 02/06/25 11:45 Nucleated RBC % (auto) 0 % 02/06/25 11:45 Nucleated RBCs # 0.0 /100WBC 02/06/25 11:45 Sodium 135 mmol/L (136-145) L 02/06/25 11:45 Potassium 4.1 mmol/L (3.5-5.1) 02/06/25 11:45 Chloride 93 mmol/L (98-107) L 02/06/25 11:45 Carbon Dioxide 27 mmol/L (22-29) 02/06/25 11:45 Anion Gap 19.1 (5-19) H 02/06/25 11:45 BUN 14 mg/dL (8-23) 02/06/25 11:45 Creatinine 0.5 mg/dL (0.5-0.9) 02/06/25 11:45 GFR Calculation 123.4 mL/min (90-130) 02/06/25 11:45 Glucose 111 mg/dL (65-115) 02/06/25 11:45 Calculated Osmolality 281 mOsm/kg (285-295) L 02/06/25 11:45 Calcium 9.9 mg/dL (8.5-10.5) 02/06/25 11:45 Total Bilirubin 1.0 mg/dL (0.15-1.2) 02/06/25 11:45 AST 16 U/L (0-32) 02/06/25 11:45 ALT 22 U/L (0-33) 02/06/25 11:45 Alkaline Phosphatase 84 U/L (35-105) 02/06/25 11:45 Total Protein 7.1 g/dL (6.6-8.7) 02/06/25 11:45 Albumin 4.3 g/dL (3.5-5.2) 02/06/25 11:45 Globulin 2.8 g/dL (1.3-4.6) 02/06/25 11:45 Lipase 15 U/L (13-60) 02/06/25 11:45 Urine Color Yellow (Yellow) 02/06/25 11:45 Urine Appearance Clear (CLEAR) 02/06/25 11:45 Urine pH 7.0 (5-7) 02/06/25 11:45 Ur Specific [place] 1.011 (1.005-1.030) 02/06/25 11:45 Urine Protein Negative (Negative) 02/06/25 11:45 Urine Glucose (UA) Negative (Normal) 02/06/25 11:45 Urine Ketones Negative (Negative) 02/06/25 11:45 Urine Blood Negative (Negative) 02/06/25 11:45 Urine Nitrate Negative (Negative) 02/06/25 11:45 Urine Bilirubin Negative (Negative) 02/06/25 11:45 Urine Urobilinogen 0.2 mg/dL (Negative) 02/06/25 11:45 Ur Leukocyte Esterase Negative (Negative) 02/06/25 11:45 Urine RBC 0-2 /hpf (0-2) 02/06/25 11:45 Urine WBC 0-5 /hpf (0-5) 02/06/25 11:45 Ur Squamous Epith Cells 0-5 /hpf (0-5) 02/06/25 11:45 Amorphous Sediment Not Reportable 02/06/25 11:45 Urine Bacteria None seen /hpf (NONE) 02/06/25 11:45 Hyaline Casts 0-4 /lpf H 02/06/25 11:45 All radiology interpretation(s) finalized by discharge Discharge Plan Discharge Patient Disposition: Home Clinical Impression: Diverticulitis Condition: Stable Prescriptions: New hydrocodone-acetaminophen 5-325 mg tablet 1 tab PO Q8H PRN (Reason: pain) Qty: 14 0RF metronidazole 500 mg tablet 500 mg PO Q8H 7 Days Qty: 21 0RF ondansetron 4 mg tablet,disintegrating 4 mg PO Q6H PRN (Reason: nausea and vomiting) Qty: 14 0RF ciprofloxacin HCl 500 mg tablet 500 mg PO BID Qty: 14 0RF No Action Zyrtec 10 mg capsule 10 mg PO DAILY PRN (Reason: allergy symptoms) Qty: 60 0RF ascorbic acid (vitamin C) 1,000 mg tablet 1,000 mg PO DAILY omega-3 fatty acids 1,000 mg capsule 1,000 mg PO DAILY magnesium oxide 400 mg (241.3 mg magnesium) tablet 400 mg PO DAILY Qty: 90 3RF albuterol sulfate 90 mcg/actuation HFA aerosol inhaler 2 puff inhalation Q6H PRN (Reason: Shortness Of Breath Or Wheezing) Qty: 8.5 6RF dicyclomine 20 mg tablet 20 mg PO BID PRN (Reason: abdominal pain) Qty: 60 5RF metoprolol tartrate 50 mg tablet 50 mg PO BID Qty: 180 2RF valsartan-hydrochlorothiazide 160-25 mg tablet 1 tab PO DAILY 90 Days Qty: 90 2RF acetaminophen [Tylenol 8 Hour] 650 mg tablet extended release 650 mg PO Q12H PRN (Reason: Pain) aspirin [Adult Low Dose Aspirin] 81 mg tablet,delayed release (DR/EC) 81 mg PO DAILY cholecalciferol (vitamin D3) [Vitamin D3] 50 mcg (2,000 unit) tablet 5,000 mcg PO DAILY triamcinolone acetonide 0.1 % cream See Rx Instructions .ROUTE .COMPLEX Rx Instructions: APPLY TWICE DAILY TO AFFECTED AREAS OF LEGS FOR ECZEMA NEEDED. DO NOT USE MORE THAN 2 WEEKS PER MONTH. NOT FOR FACE, GROIN, OR SKIN FOLDS. simvastatin 40 mg tablet 40 mg PO QAM Prolia 60 mg/mL syringe 60 mg SUBCUT .[id number] Prolia 60 mg/mL syringe 60 mg SUBCUT .[id number] Trelegy Ellipta 100-62.5-25 mcg blister with device 1 inh inhalation DAILY Discharge Orders: Discharge ED (Routine); Ordered 02/06/25 Ordered By: Elsie Hunter Referrals: Verna Zaragoza MD [Primary Care Provider, Family Practice] - 4-7 days Discharge Diet: Advance as tolerated Discharge Activity: Resume usual activity Patient Instructions: Diverticulitis (ED), Abdominal Pain (ED), Opioid Safety Print Language: Romanian Coding Level of Care Code ED Bottling Line Attendant for Prieto Rojas
[2025-02-06 13:18] LABS: Glucose Urine UA Negative (Normal); Nitrate Urine Negative (Negative); Specific Gravity, Urine 1.011 (1.005-1.030)
[2025-02-06 13:20] LABS: Add Urine Microscopic? YES
[2025-02-06] MEDS: iohexol 350 mg/mL 500 mL Btl (per mL) IV (13:33)
[2025-02-06] MEDS: ondansetron 2 mg/ML SDV 2 mL 4 MG IVP (13:44)
[2025-02-06 14:30] VITALS: BP 130/79; PULSE 72; O2SAT 94
== END 2025-02-06 14:30 | disposition home or self-care (01) ==
PROVIDERS: Emergency Provider Emergency Medicine; PCP Family Medicine
DX: K57.32 Diverticulitis of large intestine without perforation or abscess without bleeding (principal); Z79.82 Long term (current) use of aspirin; Z87.891 Personal history of nicotine dependence; J44.9 Chronic obstructive pulmonary disease, unspecified
CPT/HCPCS: 36415; 74177; 80053; 81001; 83690; 85025; 96374; 99285; J2405